=== PATIENT | female | born 1955 | race Caucasian/White ===

== ENCOUNTER 2016-07-24 22:41 | Inpatient (IN) ==
[2016-07-24 23:36] LABS: MANUAL DIFF NEEDED? NO
[2016-07-24 23:50] LABS: INR 1.02; PROTIME 10.7 Seconds (9.2-11.7); PTT 29.4 Seconds (22.0-36.0)
[2016-07-24 23:58] LABS: AGAP 15; ALBUMIN 4.3 g/dL (3.5-5.0); ALKALINE PHOSPHATASE 101 U/L (32-104); BUN 13 mg/dL (8-22); CALCIUM 9.1 mg/dL (8.8-10.2); CHLORIDE 98 mmol/L (98-107); COSMO 285; GOT 27 U/L (10-30); GPT 25 U/L (10-36); MAGNESIUM 1.7 mg/dL (1.5-2.7); POTASSIUM 3.3 mmol/L (3.5-5.1); SODIUM 142 mmol/L (136-145); TCO2 29 mmol/L (25-35); TOTAL BILIRUBIN 0.27 mg/dL (0.20-1.00); TOTAL PROTEIN 7.5 g/dL (6.3-8.3)
[2016-07-25 00:02] LABS: CK PROFILE 267 U/L (24-173)
[2016-07-25] MEDS ORDERED: NITROGLYCERIN TOP ONE (00:09)
[2016-07-25] MEDS ORDERED: ASPIRIN PO ONE ×2 (00:10→01:28)
[2016-07-25 00:15] LABS: BASO% 0.4 % (0.0-0.8); EOS# 0.24 X1000 (0.0-0.7); EOS% 2.2 % (0.0-10.0); HEMATOCRIT 34.9 % (37.0-47.0); HEMOGLOBIN 11.3 g/dL (12.0-16.0); IMM GRAN# 0.02 X1000 (0.0-0.04); IMM GRAN% 0.2 % (0.0-0.5); LYMPH# 2.02 X1000 (1.2-3.4); LYMPH% 18.9 % (20.5-51.1); MCHC 32.4 g/dL (33-37); MCV 89.7 FL (81-99); MONO# 0.97 X1000 (0.11-0.59); MONO% 9.1 % (1.7-9.3); MPV 9.9 FL (7.4-10.4); NEUT% 69.2 % (42.2-75.2); PLT 289 X1000 (130-400); RBC 3.89 XMIL (4.2-5.4)
[2016-07-25 00:52] LABS: CK INDEX 2.2 (0.0-2.5); CK-MB 5.86 ng/mL (0.0-5.0)
[2016-07-25] MEDS ORDERED: ASPIRIN ONE (01:55)
[2016-07-25] MEDS ORDERED: TYLENOL PO PRN (03:26)
[2016-07-25] MEDS ORDERED: KLOR-CON PO ONE (03:53)
[2016-07-25] MEDS ORDERED: NORCO-7.5 ONE (04:33)
[2016-07-25] MEDS ORDERED: SYNTHROID ONE ×3 (04:33→07:09)
[2016-07-25] MEDS: NORCO-7.5 PO PRN ×2 (04:46→21:43)
[2016-07-25] MEDS ORDERED: KLOR-CON ONE (04:54)
[2016-07-25] MEDS: SYNTHROID PO SCH ×2 (04:55→08:36)
--- NOTE | 2016-07-25 05:11 | HISTORY AND PHYSICAL ---
TIME: 0200 PRIMARY CARE PHYSICIAN: NILESH Romero. CHIEF COMPLAINT: Chest pain and rash. HISTORY OF PRESENT ILLNESS: Ms. Bright is a 60-year-old, female who presented to the ER tonight with complaints of substernal, nonradiating chest pain which she describes as pressure in nature. She reports that it started just prior to her arrival to the ER. She denies any associated symptoms with her chest pressure. The patient also complains of a rash to her bilateral lower extremities which she stated started tonight as well. The patient denied any recent changes to her medications or any new prescriptions. She denies any dizziness, lightheadedness, shortness of breath, nausea, vomiting, or diarrhea. She denies any hematochezia or melena. She denies any dysuria or urinary frequency. She also denies any numbness, tingling, or pain in extremities. The patient states that the rash just started tonight and that she has not previously had any rash similar to this. She denies any itching or discomfort from her rash but does state that she feels a little hot. Upon evaluation in the ER, the patient's CK was slightly elevated at 267 with an index of 2.2 and a CK-MB of 5.86. Her troponin was less than 0.01. EKG showed a sinus rhythm with a first-degree AV block with a prolonged QT and a rate of 90 with a QTc of 511. At this time, the patient will be admitted for further evaluation of her chest pain and as well as her rash. The patient just underwent an EGD and colonoscopy on Tuesday. She did report that they did remove some polyps. Secondary to this, they have held her Coumadin until this coming Tuesday. REVIEW OF SYSTEMS: A 12 point review of systems was conducted with the patient. All were negative except for pertinent positives mentioned above in the HPI. PAST MEDICAL HISTORY: 1. Atrial fibrillation, currently on Coumadin therapy. 2. Hypertension. 3. Hyperlipidemia. 4. Hypothyroidism. 5. Sleep apnea. 6. Chronic back pain. PAST SURGICAL HISTORY: 1. Right foot surgery. 2. Bilateral knee replacement. 3. Recent EGD and colonoscopy on Tuesday, July 23. SOCIAL HISTORY: The patient is a former smoker, though quit 45 years ago. She denies any history of alcohol or illicit drug use. FAMILY HISTORY: Her father has a history of coronary artery disease. Her mother has a history of an irregular heartbeat and skin cancer. Her sister has a history of throat cancer and she also has a brother who has a history of throat cancer as well. ALLERGIES: The patient reports allergies to morphine and Levaquin. HOME MEDICATIONS: Ambien 5 mg p.o. at bedtime, Coumadin 6 mg p.o. daily, Zanaflex 4 mg p.o. b.i.d., pravastatin 20 mg p.o. daily, potassium chloride 10 mEq p.o. daily, Protonix 40 mg p.o. daily, Synthroid 100 mcg p.o. daily, Santo 7.5 mg p.o. b.i.d., gabapentin 300 mg p.o. at bedtime, Lasix 40 mg p.o. daily, Tambocor 100 mg p.o. b.i.d., diltiazem XR 240 mg p.o. daily, vitamin D3 1000 units p.o. daily, cetirizine 10 mg p.o. daily, and Biotin 1000 mg p.o. daily. DIAGNOSTIC DATA: Laboratory results: White blood cell count 10.6, hemoglobin 11.3, hematocrit 34.9, platelet count is 289,000. PT 10.7, INR 1.02, PTT 29.4. D-dimer 0.44. Sodium 142, potassium 3.3, chloride 98, bicarb 29, BUN 13, creatinine 0.9, glucose 126, calcium 9.1, magnesium 1.7. Liver function tests are within normal limits. CK 267, CK index 2.2, CK- MB 5.86, with troponin less than 0.01. ProBNP was 150. EKG showed sinus rhythm with a first-degree AV block with a prolonged QT at a rate of 90 with a QTc of 511. Pending diagnostic studies at this time are a chest x-ray, repeat cardiac enzymes, amylase, and lipase. PHYSICAL EXAMINATION: VITAL SIGNS: Temperature 97.6 degrees, heart rate 78, respirations 18, blood pressure 108/64, oxygen saturations 97% on room air. GENERAL: Ms. Bright is a pleasant, 60-year-old, female who is resting on the ER stretcher. She was in no acute distress. She was awake, alert, and able to answer all questions appropriately. HEENT: Head is atraumatic, normocephalic. Pupils are equal, round, reactive to light, 3 mL bilaterally and brisk. Oral mucosa is moist. Oropharynx clear. NECK: Supple. Trachea midline. No JVD noted. No carotid bruits noted upon auscultation bilaterally. CARDIOVASCULAR: The patient has normal S1, S2. No murmurs, gallops, rubs appreciated, with a regular rate and rhythm. PULMONARY: Patient has symmetrical chest expansion bilaterally. Lung sounds are clear to auscultation in bilateral full aldana. ABDOMEN: Soft, nondistended. The patient does have a protuberant abdomen noted. No tenderness noted, though the patient did report some just generalized soreness. Bowel sounds were present in all 4 quadrants and normoactive. EXTREMITIES: The patient does appear to have some very slight swelling noted to bilateral lower extremities. This is nonpitting at this time. No cyanosis or clubbing noted. Pulse, motor, and sensory are intact in all extremities at this time. Pedal pulses as well as radial pulses are 2+ bilaterally. INTEGUMENTARY: Patient's skin is pink, warm, dry, and intact. The patient does have an erythematous, macular, nonblanching rash noted to bilateral lower extremities from approximately mid calf down. It is confluent in pattern. NEUROLOGICAL: Patient is alert and oriented x4. Cranial nerves 2-12 are grossly intact. ASSESSMENT AND PLAN: 1. Chest pain. At this time, the patient is still experiencing some chest pressure. She states it is a approximately 3/10 where previously, upon arrival in the emergency room, it was a 5/10. We will do a series of cardiac enzymes. We will repeat her chest x- ray in the morning. She has been given a 325 mg aspirin. She did recently have a heart catheterization, in October of 2014, which showed no findings of coronary artery disease. She also had a normal left ventricular systolic function. Her last echocardiogram was performed in January of 2016 which showed good left ventricular diastolic function. No valvular abnormalities, no diastolic dysfunction, with normal pulmonary pressures, with an ejection fraction 59%. We have placed a consult with Dr. Rodriguez with cardiology. We will await his evaluation and further recommendations. 2. Atrial fibrillation. We will continue the patient's Tambocor, though we will hold her diltiazem at this time given that this could possibly be causing the patient' s reported rash. We will place her on metoprolol 50 mg by mouth twice a day instead. We will continue to hold the patient's Coumadin due to her recent colonoscopy with polyp removal. We will continue to follow. 3. Hypertension. We will continue her antihypertensive. 4. Hyperlipidemia. We will continue the patient's pravastatin. 5. Hypothyroidism. We will continue the patient's Synthroid. 6. Mild hypokalemia. Patient's potassium was 3.3. We will give her a one time dose of potassium chloride 40 mg and we will continue to monitor. 7. Rash. As previously mentioned, the patient does have an erythematous, macular, nonblanching rash noted to her bilateral lower extremities. She denied any recent medication changes or any new medications. The patient does take Cardizem which could be the cause of her rash. We have held this at this time and placed her on metoprolol instead. We will continue to follow. The patient will be placed on the medical floor with telemetry. She will have vital signs every 4 hours. We will do strict intake and output. Deep venous thrombosis prophylaxis was provided with sequential compression devices. She will be on a heart healthy diet. I would like to add that the patient also did report that she has a recent diagnosis of cholelithiasis and was supposed to see Dr. Scott on Tuesday for further evaluation of this. The patient did report some substernal chest pain. We have added on an amylase and lipase as well and are awaiting a portable chest x- ray to be performed also. Further orders and recommendations pending hospital course, diagnostic studies, and physician evaluation. Dictated by NILESH Larry for Isabella Cabral MD Seen and examined pt . Discussed plan of care with [employer]OD SERVICE HELPER. cc: Isabella Cabral MD [facility]ENTERChris
[2016-07-25 06:32] LABS: AMYLASE 22 U/L (20-200); LIPASE 27 U/L (13-60)
[2016-07-25] MEDS ORDERED: ZYRTEC ONE (07:08)
[2016-07-25] MEDS ORDERED: PRAVACHOL ONE (07:08)
[2016-07-25] MEDS ORDERED: TAMBOCOR ONE (07:08)
[2016-07-25] MEDS ORDERED: LASIX ONE (07:08)
[2016-07-25] MEDS ORDERED: LOPRESSOR ONE (07:08)
[2016-07-25] MEDS ORDERED: VITAMIN D ONE (07:09)
--- NOTE | 2016-07-25 07:33 | Diag Imaging Result Doc PS360 ---
EXAM: CHEST-PORTABLE HISTORY: Chest Pain TECHNIQUE: AP portable at 0500 COMMENT: Considering differences in technique and inspiration there is been no significant change since 02/02/2016. There is fibrosis in the right middle lobe. IMPRESSION: Stable chest Electronically signed by Logan Mcgee 07/25/2016 7:31 AM
[2016-07-25 08:15] LABS: AGAP 13; BUN 16 mg/dL (8-22); CALCIUM 8.7 mg/dL (8.8-10.2); CHLORIDE 101 mmol/L (98-107); CK PROFILE 175 U/L (24-173); COSMO 285; MAGNESIUM 1.8 mg/dL (1.5-2.7); POTASSIUM 3.9 mmol/L (3.5-5.1); SODIUM 143 mmol/L (136-145); TCO2 29 mmol/L (25-35)
[2016-07-25 08:51] LABS: CK INDEX 2.5 (0.0-2.5)
[2016-07-25] MEDS: LOPRESSOR PO SCH ×2 (08:54→21:43)
[2016-07-25] MEDS: ZYRTEC PO SCH (08:55)
[2016-07-25] MEDS: PRAVACHOL PO SCH (08:56)
[2016-07-25] MEDS: VITAMIN D PO SCH (08:59)
[2016-07-25] MEDS: TAMBOCOR PO SCH ×2 (08:59→21:43)
[2016-07-25] MEDS: LASIX PO SCH (08:59)
[2016-07-25] MEDS: PROTONIX PO SCH (09:03)
[2016-07-25] MEDS: PATIENT'S OWN MED PO SCH (09:04)
--- NOTE | 2016-07-25 15:08 | CONSULTATION ---
DATE OF CONSULTATION: 07/25/2016 INDICATION FOR THE CONSULTATION: Chest pain. HISTORY OF PRESENT ILLNESS: Ms. Bright is a 60-year-old white female who normally follows with Dr. Rodriguez. She has a history of paroxysmal atrial fibrillation maintained on warfarin as well as flecainide. She presented for evaluation of chest pain that was pressure in nature and midsternal. It began yesterday evening when she was in a non exertional state. It persisted for several hours. She was experiencing it in the ER and actually has lessened somewhat but has continued to be present even this morning. There is no reproducible component to this discomfort. She has no other associated symptoms. She did note that she ate a fajita salad an hour or two before experiencing the onset of pain. No nausea, vomiting, diarrhea. She has had a recent diagnosis of cholelithiasis and was due to see Dr. Kris Scott for further evaluation. PAST MEDICAL HISTORY: 1. Significant for paroxysmal atrial fibrillation with a presentation in January 2016. Since that time she has been in sinus rhythm maintained on flecainide, Cardizem as well as warfarin. 2. History of chest pain with normal cardiac catheterization in October 2015. She had a normal ejection fraction on that study as well. 3. History of hypertension. 4. Hyperlipidemia. 5. Previous tobacco use. 6. Hypothyroidism. 7. Osteoarthritis. 8. Sleep apnea. SOCIAL HISTORY: Significant for former smoking, quit now for more than 45 years. No alcohol or illicit drug use. FAMILY HISTORY: Significant for coronary disease in her father. Mother has a history of some sort of irregular heartbeat with skin cancer. Sister with a history of throat cancer as well as a brother with throat cancer. REVIEW OF SYSTEMS: A 10-system review of systems is negative except for those mentioned in HPI. PHYSICAL EXAMINATION: Vital Signs: She is afebrile. Heart rate is 66, blood pressure 102/46. General: No acute distress. HEENT: Oropharynx is moist. Poor dentition. Eye examination with pink conjunctivae. White sclerae. Neck: Examination shows no obvious thyromegaly or thyroid tenderness. Cardiovascular: She sounds to be in a regular rate and rhythm. She has no obvious murmurs. She has no lower extremity edema. She has no evidence of elevated JVP and no carotid bruits either. Chest: Her chest exam sounds relatively clear. She has no increased work of breathing. Abdomen: Soft. There is mild tenderness to palpation predominantly in the right upper quadrant. She does slightly wince with deep palpation in that area. No rebound no guarding. No obvious organomegaly. Skin: Warm and dry throughout. She does have a mild erythematous rash noted to her right anterior green. Neurological: She is moving all extremities well. Cranial nerves II through XII are intact without any sensation deficits. Psychiatric: Alert, oriented, pleasant. Normal mood and affect. PERTINENT DATA: She had an EKG on 07/24/2016 at 2317 hours showing sinus rhythm, rate of 90 beats per minute. First-degree AV block is present. No signs of acute ischemia. Subsequent EKG 07/25/2016 at 5:51 a.m. shows sinus rhythm, rate of 70 beats per minute. First-degree AV block is present. No signs of acute ischemic changes or evidence for infarct. She had a chest x-ray performed demonstrating no evidence of significant pulmonary edema, possible fibrosis in the right middle lobe. Her laboratory data shows a white count of 10.7, hematocrit is 34.9, platelet count 289,000. INR is 1.02. D-dimer is normal at 0.44. Sodium this morning is 143, potassium 3.9, her BUN is 16, creatinine 0.7. She has negative cardiac enzymes. CKs are mildly elevated. Her amylase and lipase are normal. ASSESSMENT: Atypical chest pain. PLAN: Patient has a history of cholelithiasis diagnosed by CT earlier this month. Considering her normal cardiac catheterization, normal EKG, and normal enzymes, I would likely not pursue this from a cardiac cause. In addition her pain is somewhat atypical in that it has been persistent for several hours now. I would consider evaluation for cholelithiasis as the etiology of this discomfort. cc: West Mack MD
[2016-07-25] MEDS: NEURONTIN PO SCH (21:43)
--- NOTE | 2016-07-26 05:45 | EKG Report ---
Test Performed on : 07/25/2016 05:51:51 AM Test Reason : Chest Pain Blood Pressure : / mmHG Vent. Rate : 070 BPM Atrial Rate : 070 BPM P-R Int : 208 ms QRS Dur : 102 ms QT Int : 470 ms P-R-T Axes : 067 006 042 degrees QTc Int : 507 ms Normal sinus rhythm. Nonspecific T wave abnormality Abnormal ECG When compared with ECG of 24-JUL-2016 23:17, No significant change was found Confirmed by Sergio Jaeger MD ([id number]) on 07/26/2016 10:55:49 AM
[2016-07-26 05:57] LABS: MANUAL DIFF NEEDED? NO
[2016-07-26] MEDS: PROTONIX PO SCH (06:16)
[2016-07-26] MEDS: SYNTHROID PO SCH ×2 (06:16→10:31)
--- NOTE | 2016-07-26 06:17 | EKG Report ---
Test Performed on : 07/24/2016 11:17:08 PM Test Reason : Chest Pain Blood Pressure : / mmHG Vent. Rate : 090 BPM Atrial Rate : 090 BPM P-R Int : 212 ms QRS Dur : 106 ms QT Int : 418 ms P-R-T Axes : 068 -01 066 degrees QTc Int : 511 ms Sinus rhythm. with 1st degree AV block. Prolonged QT Abnormal ECG When compared with ECG of 03-FEB-2016 11:32, HI interval has increased Questionable change in QRS duration Unconfirmed Result
[2016-07-26 06:30] LABS: BASO% 0.2 % (0.0-0.8); EOS# 0.24 X1000 (0.0-0.7); EOS% 4.4 % (0.0-10.0); HEMATOCRIT 30.7 % (37.0-47.0); HEMOGLOBIN 9.6 g/dL (12.0-16.0); LYMPH# 1.66 X1000 (1.2-3.4); LYMPH% 30.5 % (20.5-51.1); MCH 28.6 PG (27-31); MCHC 31.3 g/dL (33-37); MCV 91.4 FL (81-99); MONO# 0.59 X1000 (0.11-0.59); MONO% 10.8 % (1.7-9.3); MPV 10.2 FL (7.4-10.4); NEUT% 54.1 % (42.2-75.2); PLT 228 X1000 (130-400); RBC 3.36 XMIL (4.2-5.4)
[2016-07-26 06:33] LABS: AGAP 11; BUN 14 mg/dL (8-22); CALCIUM 8.6 mg/dL (8.8-10.2); CHLORIDE 103 mmol/L (98-107); COSMO 284; POTASSIUM 3.9 mmol/L (3.5-5.1); SODIUM 143 mmol/L (136-145); TCO2 29 mmol/L (25-35)
[2016-07-26] MEDS: LOPRESSOR PO SCH ×2 (10:27→21:54)
[2016-07-26] MEDS: VITAMIN D PO SCH (10:28)
[2016-07-26] MEDS: TAMBOCOR PO SCH ×2 (10:29→21:54)
[2016-07-26] MEDS: ZYRTEC PO SCH (10:29)
[2016-07-26] MEDS: LASIX PO SCH (10:29)
[2016-07-26] MEDS: PRAVACHOL PO SCH (10:29)
[2016-07-26] MEDS: PATIENT'S OWN MED PO SCH (10:30)
[2016-07-26] MEDS ORDERED: MIRALAX PO ONE (11:09)
--- NOTE | 2016-07-26 11:36 | PROGRESS NOTE ---
DATE: 07/26/2016 SUBJECTIVE: This patient is feeling much better, she has no complaint of chest pain at this moment, no shortness of breath, mild abdominal discomfort mostly at the level of the right upper quadrant. OBJECTIVE: Vital Signs: Temperature 98.5 degrees, pulse 56, respiratory rate 20, blood pressure 116/63, oxygen saturation 95% on room air. HEENT: Head normocephalic. No trauma. PERRLA. Neck: Supple. No JVD. No masses. Central trachea. Chest: Clear to auscultation. No wheezing. No rales. Abdomen: Soft, mild tenderness to palpation at the level of the right upper quadrant. No signs of peritoneal irritation. Cardiovascular: RRR. No murmurs. Extremities: No edema. No clubbing. No cyanosis. This patient has a rash that looks like a band in 2 specific areas in both lower extremities. It looks like contact dermatitis because of its distribution. LABORATORY: WBC 5.4, hemoglobin 9.6, hematocrit 30.7, platelets 228,000. Sodium 143, potassium 3.9, chloride 103, bicarbonate 29, BUN 14, creatinine 0.8, glucose 76, calcium 8.6. ASSESSMENT AND PLAN: 1. Chest pain. This is much better, she has no complaint of chest pain or shortness of breath at this moment. She was evaluated by the cardiology department and since her EKG and troponins and previous status were negative he is not considering that this patient needs further workup. 2. Atrial fibrillation. Continue with the same management for now. This patient has been on warfarin but it has been stopped because of her recent colonoscopy and upper endoscopy. We will restart the warfarin tomorrow. 3. Hypertension. Continue with her medications. 4. Hyperlipidemia. Continue with patient's pravastatin. 5. Hypothyroidism. Continue with Synthroid. 6. Mild hypokalemia, resolved. 7. Rash, for me it looks like contact dermatitis but I am not quite sure, we will continue with the same management for now. It is not getting worse. 8. This patient had an appointment today with surgery for possible cholelithiasis. I will consult them so she can be evaluated and after that if they are not going to do any procedures this patient can be discharged home either today or tomorrow. cc: Corey Gagnon MD
--- NOTE | 2016-07-26 16:54 | CONSULTATION ---
DATE OF CONSULTATION: 07/26/2016 HISTORY OF PRESENT ILLNESS: This is a 60-year-old female who has had some right upper quadrant pain that radiates to her back. It began radiating to her chest last night prompting emergency room visit. She has been worked up for abdominal pain by Dr. Josue and found to have gallstones actually supposed to see me in my office today for evaluation of the symptomatic stones but she went to ER yesterday. She has had extensive cardiac workup that has been overall negative. Troponins been normal, EKG without any acute changes and she has had a left heart catheterization just a couple years ago that was overall normal per Dr. Mack. She been stable. Her pain is improved this morning. After the work workup of her heart is felt the pain is more likely gallbladder in etiology. Patient denies any nausea, vomiting. She has chronic constipation but a recent colonoscopy just last week by Dr. Josue that showed some polyps. PAST MEDICAL HISTORY: 1. Atrial fibrillation for which she takes Coumadin. 2. Obesity. 3. Hypertension. 4. Hyperlipidemia. 5. Hypothyroidism. 6. Sleep apnea. 7. Chronic back pain. SURGICAL HISTORY: She has had right foot surgery for bunion, bilateral knee replacement, EGD and colonoscopy july 23 and she has had a tubal ligation. SOCIAL HISTORY: History of smoking, quit 45 years ago. Denies any alcohol or drugs. FAMILY HISTORY: She has got multiple family members with cancer, lung and oropharyngeal cancer in both brothers and sister. REVIEW OF SYSTEMS: Ten point negative other what is mentioned in HPI. She denies any jaundice, fevers. PHYSICAL EXAMINATION: Vital Signs: Temperature 98.5, pulse 56, blood pressure , oxygen saturation 99% on room air. General: She is alert, no acute distress. HEENT: No scleral icterus or cervical masses. Cardiovascular: Normal rate, regular rhythm. Pulmonary: No increased work of breathing. Abdomen: Soft, nontender, nondistended. She is obese. Integument: Warm, dry without any jaundice. Extremity: Lower extremity exam there is trace lower extremity edema. The feet are well perfused. There is ecchymotic circumferential rash symmetrically in bilateral ankles but I do not see any cellulitis here. Strength appears normal throughout. Neurologic: There is no gross neurologic deficits. DATA: White count 5, hematocrit 30, platelets are 228. Creatinine 0.8, glucose is 76. LFTs on admission were bilirubin 0.27, AST, ALT 27,25, alkaline phosphatase 101. Troponins are negative x2, amylase, lipase 22, 27. CT scan from July 07 shows constipation with calcified gallstones but no acute inflammation, some fatty infiltration liver as well. ASSESSMENT AND PLAN: A 60-year-old female with symptomatic cholelithiasis. She has undergone a cardiac workup that has been normal thus far. Dr. Mack is following. She is off the Coumadin for EGD, colonoscopy recently. We have had long discussion risks, benefits, alternatives. I think this is a good time for us remove her gallbladder given her symptoms that have resulted in multiple visits to the emergency department and now on admission and she is off her Coumadin which she takes for atrial fibrillation. We discussed risk of bleeding, infection, bile leak and bile duct injury and the possibility of conversion to open, she understands and consents. She does have a large stool volume burden on her most recent CT scan. I will start clear liquids now, give her a couple doses of MiraLAX in anticipation of surgery tomorrow, will make her NPO at midnight and plan for laparoscopic cholecystectomy with cholangiogram tomorrow pending her completion of her cardiac workup today. cc: Caroline Scott MD [facility]
[2016-07-26] MEDS: MIRALAX PO SCH (21:54)
[2016-07-26] MEDS: NEURONTIN PO SCH (21:54)
[2016-07-27 05:30] LABS: MANUAL DIFF NEEDED? NO
[2016-07-27 05:34] LABS: BASO% 0.4 % (0.0-0.8); EOS# 0.27 X1000 (0.0-0.7); EOS% 3.7 % (0.0-10.0); HEMATOCRIT 32.3 % (37.0-47.0); HEMOGLOBIN 10.3 g/dL (12.0-16.0); LYMPH# 1.62 X1000 (1.2-3.4); LYMPH% 22.2 % (20.5-51.1); MCHC 31.9 g/dL (33-37); MONO# 0.69 X1000 (0.11-0.59); MONO% 9.5 % (1.7-9.3); MPV 9.8 FL (7.4-10.4); NEUT% 64.2 % (42.2-75.2); PLT 239 X1000 (130-400); RBC 3.55 XMIL (4.2-5.4)
[2016-07-27 05:47] LABS: AGAP 11; BUN 12 mg/dL (8-22); CALCIUM 8.6 mg/dL (8.8-10.2); CHLORIDE 103 mmol/L (98-107); COSMO 284; POTASSIUM 3.8 mmol/L (3.5-5.1); SODIUM 143 mmol/L (136-145); TCO2 29 mmol/L (25-35)
[2016-07-27] MEDS: PROTONIX PO SCH (06:45)
[2016-07-27] MEDS: MIRALAX PO SCH ×2 (09:10→21:46)
[2016-07-27] MEDS: LOPRESSOR PO SCH ×3 (09:10→21:47)
[2016-07-27] MEDS: PATIENT'S OWN MED PO SCH (09:10)
[2016-07-27] MEDS ORDERED: SODIUM CHLORIDE 0.9% ONE (10:46)
[2016-07-27] MEDS ORDERED: MARCAINE 0.25% PF/EPI 1:200,000 ONE (10:46)
[2016-07-27] MEDS ORDERED: LR 1,000 ML ONE ×2 (10:47→12:51)
[2016-07-27] MEDS ORDERED: XYLOCAINE 1% ONE (10:47)
[2016-07-27] MEDS ORDERED: KEFZOL 2 GM/D5W 2 GM/50 ML IVPB ONE (10:55)
--- NOTE | 2016-07-27 11:45 | PROGRESS NOTE ---
DATE: 07/27/2016 SUBJECTIVE: No events overnight. No more chest pain or abdominal pain. No nausea or vomiting. OBJECTIVE: Vital Signs: No fevers. No tachycardia. Blood pressure has been 139/71. Abdomen: Soft, nontender, nondistended. Integument: Warm and dry, with no jaundice. HEENT: No scleral icterus. LABORATORIES: White count 7, hematocrit 32. Creatinine 0.7. Troponins have been negative x2. ASSESSMENT: A 60-year-old female with symptomatic cholelithiasis. Cardiac workup has been unrevealing. Given that she is off of her Coumadin, we will plan for cholecystectomy today for symptomatic cholelithiasis. We discussed risks, benefits, and alternatives, including bleeding, infection, damage to other structures, bile leak, possibility of leaving a drain, and common bile duct injury. She understands that these are risks, but are unlikely, and will proceed to operating room today for laparoscopic cholecystectomy with cholangiogram. cc: Caroline Scott MD
--- NOTE | 2016-07-27 12:13 | Diag Imaging Result Doc PS360 ---
EXAM: OPERATIVE CHOLANGIOGRAM HISTORY: GALLBLADDER DZ TECHNIQUE: Intraoperative cholangiogram, two views taken during the procedure performed by Dr. Scott. COMPARISON: None. FINDINGS: Contrast fills the distal common bile duct and has emptied into the duodenum. No stone or stricture. IMPRESSION: Negative cholangiogram. Electronically signed by Nima Servin 07/27/2016 12:11 PM
[2016-07-27] MEDS ORDERED: DIPRIVAN 1% ONE (12:20)
[2016-07-27] MEDS ORDERED: FENTANYL ONE (12:20)
[2016-07-27] MEDS ORDERED: ROBINUL ONE (12:50)
[2016-07-27] MEDS ORDERED: NEOSTIGMINE ONE (12:50)
[2016-07-27] MEDS ORDERED: ZOFRAN ONE (12:50)
[2016-07-27] MEDS ORDERED: ZEMURON ONE (12:51)
[2016-07-27] MEDS ORDERED: QUELICIN (DOSE) ONE (12:51)
[2016-07-27] MEDS ORDERED: XYLOCAINE-MPF 2% ONE (12:51)
--- NOTE | 2016-07-27 13:11 | PROGRESS NOTE ---
DATE: 07/27/2016 SUBJECTIVE: Patient is still reporting mild abdominal discomfort in the right upper quadrant. OBJECTIVE: Vital Signs: Temperature 97.2 degrees, heart rate 55, respiratory rate 12, blood pressure 117/60 and O2 saturation 100% on room air. General Examination: This is a 60-year-old female, lying in bed in no acute distress. HEENT: Head is normocephalic, atraumatic. Anicteric sclerae and pale conjunctivae. Mucous membranes moist. Neck: Supple. No JVD noted. No carotid bruits. No lymphadenopathy. No thyromegaly. Cardiovascular exam: S1, S2 heard. No murmurs, gallops, or rubs. Regular rate and rhythm. Respiratory: Clear bilaterally to auscultation. No work of breathing or using accessory muscles. Abdomen: Soft, mildly tender to palpation in the right lower quadrant. No signs of peritoneal irritation. Cardiovascular exam: S1, S2 heard. Extremities: No clubbing, cyanosis, or edema. He had a rash that looks like a belt in both lower extremities; it appears to be a contact dermatitis. Neurological exam: Patient alert and oriented x3. Able to move 4 extremities. Cranial nerves 2-12 grossly normal. LABORATORY DATA: White cell count 7.29, hemoglobin 10.3, hematocrit 32.3, platelets 239 with BMP normal. ASSESSMENT AND PLAN: 1. Chest pain. That condition is resolved. Cardiology has evaluated this patient and they are not going to do any further workup. 2. Atrial fibrillation. The patient was on warfarin for this condition and, because of recent colonoscopy and upper endoscopy, was stopped. We are going to restart it as soon as this patient has surgery. 3. Symptomatic cholelithiasis Dr. Kris Scott has evaluated this patient, and she is going to be taken to the operating room today. We will follow his recommendations. 4. Hypertension. We will continue home medications. 5. Hyperlipidemia. The patient will continue with pravastatin. 6. Hypothyroidism. Patient will continue with home dose of Synthroid. 7. Lower extremity rash. Will continue with the same management. cc: Gorge Sims MD
[2016-07-27] MEDS: PRAVACHOL PO SCH (14:07)
[2016-07-27] MEDS: ZYRTEC PO SCH (14:08)
[2016-07-27] MEDS: TAMBOCOR PO SCH ×2 (14:08→21:44)
[2016-07-27] MEDS: LASIX PO SCH (14:08)
[2016-07-27] MEDS: VITAMIN D PO SCH (14:08)
--- NOTE | 2016-07-27 14:09 | OPERATIVE NOTE ---
PROCEDURE DATE: 07/27/2016 PREOPERATIVE DIAGNOSIS: Symptomatic cholelithiasis. POSTOPERATIVE DIAGNOSIS: Symptomatic cholelithiasis. PROCEDURE PERFORMED: Laparoscopic cholecystectomy with intraoperative cholangiogram. ESTIMATED BLOOD LOSS: 5 mL. SPECIMENS: Gallbladder. ANESTHESIA: General. OFFSET MACHINE OPERATOR: Dr. Caesar Venegas, who was present for the entirety of the case. OPERATIVE INDICATIONS: A 60-year-old female who presented with chest pain and right upper quadrant abdominal pain. Cardiac workup was negative. CT scan showed gallstones within the gallbladder consistent with symptomatic cholelithiasis. OPERATIVE FINDINGS: There was a chronically inflamed gallbladder that contained numerous stones. On cholangiogram, there was a short cystic duct with rapid flow of contrast into a prominent common bile duct, but which was not pathologically dilated, with no filling defects and preferential flow in the duodenum. We could get some reflux in the common hepatic duct, but could not get reflux in the bilateral 2nd- and 3rd-degree biliary radicals. The pancreatic duct was not visualized. Overall, normal-appearing cholangiogram. OPERATIVE NOTE: Risks, benefits, and alternatives were discussed with the patient. She consented to the procedure. She was seen in the preoperative area. Surgery to be performed was confirmed and she was taken to the operating room, placed in supine position, and general anesthesia was induced. Abdomen was prepped with chlorhexidine and draped in usual fashion. After a time-out, a periumbilical block was made. A curvilinear supraumbilical incision was made and carried down to the level of the fascia. The umbilical stalk was elevated. An incision the midline fascia was made with a 15 blade scalpel and the abdomen entered in a controlled fashion. A 12 mm David trocar was placed under direct visualization into the abdomen, with care to protect the underlying structures. After this, the abdomen was insufflated to 15 mmHg. We inspected to make sure that there was no underlying injury and there was not. We then placed 3 trocars, 1 to the epigastrium, 1 in the midclavicular line off the costal margin, and 1 more laterally after infiltration of the peritoneum. This was all done under direct visualization. Using a locking grasper, we grasped the gallbladder and retracted it cephalad. Starting laterally and progressing medially over the infundibulocystic junction, we stripped down the peritoneum, exposing the critical view of safety. There was an enlarged lymph node here overlying the artery. We dissected this out, doubly clipped the artery and divided it. After establishing the critical view, we dissected out the cystic duct. We could visualize the common bile duct along its entire course and we were well away from this. We protected the common bile duct, placed a clip on the gallbladder side, made a ductotomy, and performed the cholangiogram with above findings. After this, we triply clipped the cystic duct and divided it. We removed the gallbladder from the gallbladder fossa with care to protect from rupturing the gallbladder, and we did this successfully. We placed the gallbladder in an EndoCatch bag. We irrigated the abdomen and confirmed hemostasis in the gallbladder fossa, and that the cystic duct was well occluded with the clips. There was no bile leakage. After irrigating the abdomen, we removed the trocars under direct visualization. We desufflated the abdomen and brought the gallbladder out through the umbilical incision. We closed the fascia with interrupted 0 Vicryl sutures. Skin was closed with 4-0 Monocryl. Dermabond was applied. Counts correct x2. She tolerated the procedure well and was transferred to PACU in good condition. cc: Caroline Scott MD
[2016-07-27] MEDS: NORCO-7.5 PO PRN (16:21)
[2016-07-27] MEDS ORDERED: SYNTHROID PO SCH (21:00)
[2016-07-27] MEDS: NEURONTIN PO SCH (21:44)
[2016-07-27] MEDS: PERIDEX MT SCH (21:46)
[2016-07-28] MEDS: PROTONIX PO SCH (07:31)
[2016-07-28] MEDS: PERIDEX MT SCH (08:15)
[2016-07-28] MEDS: PRAVACHOL PO SCH (08:15)
[2016-07-28] MEDS: VITAMIN D PO SCH (08:15)
[2016-07-28] MEDS: TAMBOCOR PO SCH (08:15)
[2016-07-28] MEDS: ZYRTEC PO SCH (08:16)
[2016-07-28] MEDS: LASIX PO SCH (08:16)
[2016-07-28] MEDS: LOPRESSOR PO SCH (08:18)
[2016-07-28] MEDS: PATIENT'S OWN MED PO SCH (08:18)
[2016-07-28] MEDS: MIRALAX PO SCH (08:18)
--- NOTE | 2016-07-28 08:39 | PROGRESS NOTE ---
DATE: 07/28/2016 SUBJECTIVE: Feels well. only pain is at incisions. No other events overnight. She is tolerating clear liquids. OBJECTIVE: Afebrile. Temperature is 98 degrees, pulse 52, blood pressure 126/ 60. Abdomen is soft, appropriately tender. Incision clean, dry, and intact. LABORATORY DATA: No new labs this morning. ASSESSMENT AND PLAN: This is a 60-year-old female admitted with chest pain and found to have gallstones felt to be causing the symptoms. She is doing very well. From a surgical standpoint, she can go home. She is to see me back in the next 1-2 weeks in my office. I have given her detailed postoperative instructions, what to look out for, fevers, jaundice, nausea, vomiting, worsening abdominal pain. She will call if she develops any of these. cc: Caroline Scott MD MTDD
[2016-07-28 11:05] VITALS: BP 117/63
--- NOTE | 2016-07-28 14:42 | DISCHARGE SUMMARY ---
ADMISSION DATE: 07/25/2016 DISCHARGE DATE: 07/28/2016 CONSULTATIONS: 1. Dr. West Mack with cardiology. 2. Dr. Kris Scott with general surgery. PERTINENT PROCEDURES: Laparoscopic cholecystectomy with intraoperative cholangiogram. DISCHARGE DIAGNOSES: 1. Symptomatic cholelithiasis status post laparoscopic cholecystectomy with intraoperative cholangiogram performed by Dr. Kris Scott. The patient tolerated the procedure well. Tolerating p.o. She is being discharged home today. 2. Atrial fibrillation. The patient on flecainide and Cardizem as well as warfarin. Her Cardizem was discontinued secondary to low heart rates in the 50s. Will continue on flecainide and resume warfarin. She will report on 07/30/2016 to [facility] where she normally has her Coumadin checked. I have left a message with the [facility] to be on the lookout for a PT and an INR for adjustments. 3. Chest pain. Condition resolved. Cardiology evaluated the patient. She does not require any further work up. [place] it was secondary to her symptomatic cholelithiasis. 4. Hypertension. Continue home medications. 5. Hyperlipidemia. Continue on pravastatin. 6. Hypothyroidism. Continue on Synthroid. HOSPITAL COURSE: Ms. Bright is a 60-year-old female, who presented to the ED with complaints of substernal nonradiating chest pain that was described as pressure. It started just prior to arrival to the ED. She did complain of a rash to her bilateral lower extremities which started on the day of her admission as well. She denies any recent changes to medications or new prescriptions. There was no associated dizziness, lightheadedness, shortness of breath, nausea or vomiting. Upon evaluation in the ED, the patient's CK was slightly elevated at 267 with index of 2.2 and a CK-MB of 5.86, troponin was less than 0.01. EKG showed sinus rhythm with 1st degree AV block and a prolonged QT at a rate of 90 with a QTc of 511. The patient was admitted for further evaluation of chest pain. She was ruled out with serial enzymes. She was also initiated on aspirin. She did recently have a heart catheterization in October 2014 which showed no findings of coronary artery disease and normal LV function. She also reported diagnosis of cholelithiasis and was supposed to see Dr. Scott on Tuesday for evaluation however with the chest pain she went ahead and came in and was ruled out for MO. She did undergo a laparoscopic cholecystectomy with intraoperative cholangiogram with Dr. Kris Scott for her symptomatic cholelithiasis. She has been released from a surgical standpoint. Dr. Brown feels that the patient is appropriate for discharge. He is going to continue to hold her Cardizem until she follows up with Dr. Rodriguez secondary to low heart rates in the 50s. As well as resume her Coumadin. I have left a message with the [facility]. The patient will be coming to [facility] to have her labs drawn on 07/30/2016. Dr. Brown did not want to do any type of Lovenox bridge. The patient was not therapeutic when she came into the hospital. She will follow up with Dr. Kris Scott in 1-2 weeks in his office. He has given her detailed postoperative instructions - what to look out for, such as fevers, jaundice, nausea, vomiting and worsening abdominal pain, and to call him if he develops any of these symptoms. Vital signs at time of her discharge, temperature is 98 degrees, heart rate 57, respirations 16, blood pressure is 117/63, O2 is 96% on room air. DISCHARGE DIET: GI soft. DISCHARGE MEDICATIONS: 1. As per Dr. Brown, Biotin 1000 mcg p.o. daily. 2. Zyrtec 10 mg p.o. daily. 3. Vitamin D 3000 units p.o. daily. 4. Tambocor 100 mg p.o. b.i.d. 5. Lasix 40 mg p.o. daily. 6. Gabapentin 300 mg p.o. at bedtime. 7. [place] 1 tab p.o. b.i.d. 8. Synthroid 0.1 mg p.o. daily. 9. Protonix 40 mg p.o. daily. 10. Klor-Con 10 mEq p.o. daily. 11. Pravastatin 20 mg p.o. daily. 12. Zanaflex 4 mg p.o. b.i.d. 13. Coumadin 6 mg p.o. daily. 14. Ambien 10 mg 1 each p.o. at bedtime. FOLLOWUP: The patient is being discharged home with self care. She is to follow up with her PT/INR on 07/30/2016. I have left a message with the [facility] to be awaiting her results for her Coumadin adjustment. The patient can follow up with Dr. Rodriguez in reference to her Cardizem being stopped due to low heart rate as well as her follow up her primary care physician NILESH Romero, and her surgeon Dr. Kris Scott in 1-2 weeks. The patient can return to the ED for any worsening of symptoms. DISCHARGE TIME: Thirty four minutes. Dictated by NILESH Bustillos for Gorge Sims MD cc: NILESH Romero MD Cesar Garcia-Rodriguez, MD [facility]
--- NOTE | 2016-09-30 18:17 | PROVIDER DOCUMENTATION ---
This chart was entered by Kostas Breaux Scribe, acting as scribe for Harvey Jo MD. HPI-Chest Pain - General Chief Complaint: Chest Pain Stated Complaint: CP, RASH BILATERAL LEGS Time Seen by Provider: 07/24/16 23:27 Source: patient Allergies/Adverse Reactions: Patient Allergies Allergy/AdvReac Type Severity Reaction Status Date / Time morphine Allergy Mild RASH Verified 07/25/16 00:35 levofloxacin [From Levaquin] Allergy ANAPHYLAXIS Verified 07/25/16 00:35 Home Medications: Home Medication List Medication Instructions Recorded Confirmed Last Taken Type Cetirizine HCl 10 mg PO DAILY 06/07/14 07/25/16 07/24/16 History Furosemide [Lasix] 40 mg PO DAILY 06/07/14 07/25/16 07/24/16 History Levothyroxine [Synthroid] 0.1 mg PO DAILY 06/07/14 07/25/16 07/24/16 History Potassium Chloride [Klor-Con 10] 10 meq PO DAILY 06/07/14 07/25/16 07/24/16 History Pravastatin Sodium 20 mg PO DAILY 06/07/14 07/25/16 07/24/16 History Pantoprazole [Protonix] 40 mg PO DAILY@0700 #30 tablet 10/11/14 07/25/16 Rx Zolpidem [Ambien] 1 dose PO HS 10/11/14 07/25/16 07/23/16 History Biotin 1,000 mcg PO DAILY 02/03/16 07/25/16 07/24/16 History Gabapentin 300 mg PO HS 02/03/16 07/25/16 07/23/16 History Tizanidine [Zanaflex] 4 mg PO BID 02/03/16 07/25/16 07/24/16 History Cholecalciferol (Vitamin D3) 1,000 units PO DAILY 07/25/16 07/25/16 07/24/16 History [Vitamin D3] Flecainide [Tambocor] 100 mg PO BID 07/25/16 07/25/16 07/24/16 History Hydrocodone/Acetaminophen [Cedar 1 tab PO BID 07/25/16 07/25/16 07/24/16 History 7.5-325 Tablet] Warfarin Sodium 6 mg PO DAILY 05/07/25/16 07/19/16 History - History of Present Illness-CP Nature of Presenting Problem: Pt is a 60 yowf who presents to ER with CC of central, non-radiating chest pain that started earlier tonight. Pt states that her chest pain is worse on deep inspiration and is reproducible on exam. Pt also reports a rash on bilateral lower extremities. Location: reports: central Chest Pain Radiation: reports: no radiation Quality of Pain: reports: aching Severity in ED: mild Onset/Duration: this evening Timing: still present Associated Symptoms: reports: abdominal pain, rash, shortness of breath. denies : back pain, diaphoresis, dizziness, edema, fatigue, fever/chills, headache, heartburn, nausea Nitro Today/Relief: no nitro taken today Aspirin Treatment Today: no aspirin today Similar Symptoms Previously?: No Recently Seen Here or By Another Healthcare Provider: Yes Review of Systems - Adult - REVIEW OF SYSTEMS - ADULT Constitutional: denies: chills, fever, fatique, night sweats, weight gain, weight loss Eyes: reports: no symptoms reported Ears, Nose, Mouth & Throat: reports: no symptoms reported Cardiovascular: reports: chest pain. denies: edema, heart murmur, irregular heart rate, orthopnea, palpitations, poor circulation, PND, syncope Respiratory: reports: dyspnea on exertion. denies: chronic cough, cough, excessive sputum production, hemoptysis, pleurisy, shortness of breath, wheezing Gastrointestinal: reports: constipation. denies: diarrhea, nausea, vomiting Genitourinary: reports: no symptoms reported Musculoskeletal: reports: no symptoms reported Integumentary: reports: rash. denies: hives, hair loss, itching, mole changes, nail changes, skin sores/ulcer, skin thickening Neurological: reports: no symptoms reported Psychiatric: reports: no symptoms reported Endocrine: reports: no symptoms reported Hematologic/Lymphatic: reports: no symptoms reported Allergic/Immunologic: reports: no symptoms reported All Other Systems: Reviewed and Negative Past History - Adult - PAST MEDICAL HISTORY-ADULT Review of Records: reports: Nursing Assessment Review, Medications Reviewed Cardiovascular: reports: A-Fib, HTN, hyperlipidemia Musculoskeletal: reports: arthritis Endocrine/Immune: reports: thyroid disorder - PRIOR SURGERIES/PROCEDURES Surgical/Procedure History: reports: recent surgery (reconstructive foot surgery with bunionectomy) - IMMUNIZATION STATUS Childhood Immunizations: See Nurse Assessment Flu Vaccine: See Nurse Assessment - FAMILY HISTORY Family History: reviewed, not pertinent Physical Exam-General - PHYSICAL EXAM-ADULT Initial Vital Signs Reviewed: Yes - CONSTITUTIONAL General Appearance: appears well, alert, mild distress, obese, anxious - EYES Eyes: PERRL/EOMI, pink conjunctivae - HEAD, EARS, NOSE, MOUTH & THROAT HENMT: normocephalic/atraumatic, moist mucous membranes, normal ENT inspection, TMs normal, pharynx normal. negative: angioedema, dental decay, hearing deficit , pharyngeal erythema, tonsillar exudate, TM abnormal - NECK Neck: non-tender, full range of motion, supple, normal inspection. negative: C- spine tenderness, limited range of motion, lymphadenopathy - RESPIRATORY Respiratory: lungs clear, normal breath sounds, no pleuratic chest pain, no respiratory distress, no accessory muscle use. negative: chest non-tender, respiratory distress, decreased breath sounds, accessory muscle use, wheezing - CARDIOVASCULAR Cardiovascular: normal peripheral pulses, regular rate, rhythm. negative: bradycardia, tachycardia, irregularly irregular - CHEST (BREASTS) Chest/Breast: tenderness (central chest pain (same as CC) reproducible with palpation) - GASTROINTESTINAL (ABDOMEN) Abdominal Exam: normal bowel sounds, non tender, soft, no organomegaly, no pulsatile mass. negative: abnormal bowel sounds, distended, tenderness - MUSCULOSKELETAL Back Exam: normal inspection, no CVA tenderness, no vertebral tenderness. negative: CVA tenderness, vertebral tenderness Extremity: normal range of motion, non-tender, normal gait, normal inspection, no pedal edema, no calf tenderness, normal capillary refill, swelling (mild bilateral ankle swelling). negative: deformity, erythema, inflammation, tenderness - SKIN Integumentary: erythema, petechiae, rash (erythemous, macular, petechiael rash on bilateral ankles). negative: abrasion(s), diaphoresis, ecchymosis, laceration(s) - NEUROLOGIC Neurologic: numerical tool programmer II-XII nml as tested, grossly normal, no motor/sensory deficits . negative: facial droop, focal weakness, motor weakness, sensory deficit - PSYCHIATRIC Psych/Mental Status: normal mood/affect, normal thought content, normal thought process, oriented x 3 Progress - PLAN OF CARE/RESULTS Progress/Plan/Lab Results: Orders Category Date Time Status Admit - [facility] [place] Routine [id number] 07/25/16 03:26 Ordered Apply Mechanical Device [QM] ORDERED Care 07/25/16 03:26 Active Nursing- MD Consult Request ROUTINE Care 07/25/16 03:26 Completed Saline Loc DIRECTED Care 07/25/16 03:26 Active Vital Signs Order Q 4-HR ASSESS Care 07/25/16 03:26 Active Physician/Provider Consults Routine Cons 07/25/16 08:00 Ordered Heart Healthy Diet Diet 07/25/16 02:19 Completed BASIC METABOLIC PANEL [CHEM] Routine Lab 07/25/16 07:32 Completed BASIC METABOLIC PANEL [CHEM] Routine Lab 07/26/16 05:25 Completed CBC WITH ELECTRONIC DIFF [HEME] Routine Lab 07/26/16 05:25 Completed CBC WITH ELECTRONIC DIFF [HEME] Stat Lab 07/24/16 23:23 Completed CK PROFILE [SP CHEM] Q8H Lab 07/25/16 07:32 Completed CK PROFILE [SP CHEM] Q8H Lab 07/25/16 14:47 Completed CK PROFILE [SP CHEM] Stat Lab 07/24/16 23:23 Completed COMPREHENSIVE METABOLIC PANEL [CHEM] Stat Lab 07/24/16 23:23 Completed D-DIMER [CHEM] Stat Lab 07/24/16 23:23 Completed MAGNESIUM [CHEM] Routine Lab 07/25/16 07:32 Completed MAGNESIUM [CHEM] Routine Lab 07/25/16 07:32 Completed MAGNESIUM [CHEM] Stat Lab 07/24/16 23:23 Completed PRO B-NATRIURETIC PEPTIDE Stat Lab 07/24/16 23:23 Completed PROTIME WITH INR [COAG] Stat Lab 07/24/16 23:23 Completed PTT [COAG] Stat Lab 07/24/16 23:23 Completed TROPONIN T Q8H Lab 07/25/16 07:32 Completed TROPONIN T Q8H Lab 07/25/16 14:47 Completed TROPONIN T Stat Lab 07/24/16 23:23 Completed Acetaminophen [Tylenol] Med 07/25/16 03:26 Discontinued 650 mg PO Q6H PRN PRN Aspirin Med 07/25/16 00:10 Discontinued 324 mg PO NOW ONE Aspirin Med 07/25/16 01:28 Discontinued 324 mg PO NOW ONE Aspirin Med 07/25/16 01:55 Discontinued 325 mg .ROUTE .STK-MED ONE Cetirizine [Zyrtec] Med 07/25/16 09:00 Discontinued 10 mg PO DAILY Cholecalciferol (Vit D3) [Vitamin D] Med 07/25/16 09:00 Discontinued 1,000 unit PO DAILY Flecainide [Tambocor] Med 07/25/16 09:00 Discontinued 100 mg PO BID Furosemide [Lasix] Med 07/25/16 09:00 Discontinued 40 mg PO DAILY Gabapentin [Neurontin] Med 07/25/16 21:00 Discontinued 300 mg PO HS Hydrocodone/APAP 7.5 mg/325 mg [[place]edar-7.5] Med 07/25/16 03:26 Discontinued 1 each PO BID PRN PRN Levothyroxine [Synthroid] Med 07/25/16 09:00 Discontinued 100 microgm PO DAILY Nitroglycerin Med 07/25/16 00:09 Discontinued 0.5 inch TOP NOW ONE PRAVAstatin [Pravachol] Med 07/25/16 09:00 Discontinued 20 mg PO DAILY Pantoprazole [Protonix] Med 07/25/16 07:00 Discontinued 40 mg PO DAILY@0700 Patient's Own Med Med 07/25/16 09:00 Discontinued 1 each PO DAILY Oxygen Device Routine Oth 07/25/16 03:26 Completed EKG [EKG] Routine Ther 07/25/16 08:00 Completed EKG [EKG] Stat Ther 07/24/16 23:11 Draft Transfer/Admit Order [TRANSFER] Routine Transfer 07/25/16 02:17 Completed Result Diagrams: 07/27/16 05:08 07/27/16 05:08 - EKG 1 Time of EKG reading by physician:: 23:17 EKG Read and Signed by:: Harvey Jo EKG Interpretation (*Must complete 3 of following elements*): Abnormal ( Prolonged QT) Rate: 90 Rhythm: Sinus rhythm with 1st degree AV block - CONSULTS/PCP/HOSPITALIST Notification #1 *Consult/PCP/Hospitalist*: Dr. Cabral (Hospitalist) Time Discussed: 01:32 Consult Disposition: Admit Departure - Departure Date of Disposition Decision: 07/24/16 Time of Disposition Decision: 01:29 DIAGNOSIS: Chest pain Qualifiers: Chest pain type: unspecified Qualified Code(s): R07.9 - Chest pain, unspecified Disposition: ADMITTED INPATIENT 09 Certified Medical Emergency: Emergent Condition: Stable - Critical Care Note This patient required my direct & personal management of CC.: No This chart was documented by the indicated scribe, (Kostas Breaux, Anum) and accurately reflects the services I performed and decisions made by me, Harvey Jo MD, as attested by the provider's signature.
== END 2016-07-28 14:28 | disposition home or self-care (01) ==
LOC: ED 22:41 → 4N 07-25 02:56 → SUATTDRO 07-25 02:56
PROVIDERS: ATTEND Internal Medicine

== ENCOUNTER 2018-11-28 13:03 | Inpatient (IN) ==
--- NOTE | 2018-11-28 13:40 | EKG Report ---
Test Performed on : 11/28/2018 1:29:36 PM Test Reason : cp Blood Pressure : / mmHG Vent. Rate : 071 BPM Atrial Rate : 071 BPM P-R Int : 172 ms QRS Dur : 100 ms QT Int : 474 ms P-R-T Axes : 072 -14 037 degrees QTc Int : 515 ms Normal sinus rhythm. Normal ECG When compared with ECG of 09-OCT-2017 16:08, No significant change was found Unconfirmed Result
[2018-11-28 13:45] LABS: BASO# 0.05 X1000 (0.0-0.2); BASO% 0.5 % (0.0-0.8); EOS# 0.21 X1000 (0.0-0.7); EOS% 2.2 % (0.0-10.0); HEMATOCRIT 36.7 % (37.0-47.0); HEMOGLOBIN 11.8 g/dL (12.0-16.0); IMM GRAN# 0.02 X1000 (0.0-0.04); IMM GRAN% 0.2 % (0.0-0.5); LYMPH# 2.58 X1000 (1.2-3.4); LYMPH% 27.6 % (20.5-51.1); MCHC 32.2 g/dL (33-37); MCV 90.2 FL (81-99); MONO# 0.94 X1000 (0.11-0.59); MPV 9.9 FL (7.4-10.4); NEUT# 5.56 X1000 (1.4-6.5); NEUT% 59.5 % (42.2-75.2); PLT 268 X1000 (130-400); RBC 4.07 XMIL (4.2-5.4); RDW 14.1 % (11.5-14.5); WBC 9.36 X1000 (4.8-10.8)
--- NOTE | 2018-11-28 13:50 | Diag Imaging Result Doc PS360 ---
EXAM: CHEST-2 VIEWS 11/28/2018 HISTORY: cp TECHNIQUE: PA and lateral chest COMMENT: There is platelike opacity in the right middle lobe which was also apparently present on 10/09/2017. Otherwise the appearance the chest has not changed significantly. 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 No evidence of acute disease. Electronically signed by Logan Mcgee 11/28/2018 1:48 PM
[2018-11-28 13:51] LABS: INR 1.51; PROTIME 18.5 Seconds (11.0-16.0)
[2018-11-28 13:52] LABS: PTT 34.8 Seconds (22.3-41.8)
[2018-11-28 14:23] LABS: AGAP 18; ALB/GLOB RATIO 1.4; ALBUMIN 4.7 g/dL (3.5-5.0); ALKALINE PHOSPHATASE 94 U/L (32-104); BUN 19 mg/dL (8-22); CALCIUM 9.6 mg/dL (8.8-10.2); CHLORIDE 99 mmol/L (98-107); CK PROFILE 77 U/L (24-173); COSMO 285; CREATININE 0.9 mg/dL (0.5-0.9); ESTIMATED GFR > 60; GLUCOSE 87 mg/dL (70-104); GOT 27 U/L (10-30); GPT 30 U/L (10-36); POTASSIUM 4.3 mmol/L (3.5-5.1); SODIUM 142 mmol/L (136-145); TCO2 25 mmol/L (25-35); TOTAL BILIRUBIN 0.26 mg/dL (0.20-1.00)
[2018-11-28] MEDS ORDERED: G.I. COCKTAIL PO ONE (17:17)
--- NOTE | 2018-11-28 17:37 | PROVIDER DOCUMENTATION ---
HPI-Cardiac General - General Chief Complaint: General Adult Stated Complaint: INFECTION RECHECK Time Seen by Provider: 11/28/18 14:14 Source: patient Allergies/Adverse Reactions: Patient Allergies Allergy/AdvReac Type Severity Reaction Status Date / Time morphine Allergy Mild RASH Verified 11/22/18 12:17 levofloxacin [From Levaquin] Allergy ANAPHYLAXIS Verified 11/22/18 12:17 Home Medications: Home Medication List Medication Instructions Recorded Confirmed Last Taken Type Cetirizine HCl 10 mg PO DAILY 06/07/14 11/28/18 11/27/18 History Furosemide [Lasix] 40 mg PO BID 06/07/14 11/28/18 11/28/18 History Levothyroxine [Synthroid] 112 mcg PO DAILY 06/07/14 11/28/18 11/27/18 History Potassium Chloride [Klor-Con 10] 10 meq PO DAILY 06/07/14 11/28/18 11/28/18 History Biotin 10,000 mcg PO DAILY 02/03/16 11/28/18 11/28/18 History Gabapentin 400 mg PO HS 02/03/16 11/28/18 11/27/18 History Tizanidine [Zanaflex] 4 mg PO HS 02/03/16 11/28/18 11/27/18 History Flecainide [Tambocor] 100 mg PO BID 07/25/16 11/28/18 11/28/18 History Warfarin Sodium 6 mg PO HS 07/25/16 11/28/18 11/27/18 History Diclofenac Sodium 75 mg PO BID 10/09/17 11/28/18 11/28/18 History Diltiazem HCl [Diltiazem ER] 120 mg PO DAILY 10/09/17 11/28/18 11/28/18 History Ranitidine [Zantac] 150 mg PO BID 10/09/17 11/28/18 11/28/18 History Spironolactone 25 mg PO DAILY 10/09/17 11/28/18 11/28/18 History ATORVAstatin [Lipitor] 40 mg PO QHS 11/22/18 11/28/18 11/27/18 History Cephalexin [Keflex] 500 mg PO Q8HR 10 Days #30 cap 11/22/18 11/28/18 11/28/18 Rx Hydrocodone/Acetaminophen [[place] 1 ea PO TID 11/22/18 11/28/18 11/28/18 History 7.5-325 Tablet] Temazepam 15 mg PO QHS 11/22/18 11/28/18 11/27/18 History Omeprazole 20 mg PO DAILY #30 capsule. 11/28/18 Unknown Rx - History of Present Illness-Cardiac Nature of Presenting Problem: Patient reports headache x 1 week duration and now substernal/epigastric pain x 2 days duration. KRUEGER stated 1 week same time she was evaluated for right leg cellulitis and still on antibiotics. she has been take norco 10/325mg and diclofenac for her arthritis but still persistent KRUEGER. She felt nauseous with norco today, she did not take her zofran, her prn nausea pill. 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 No extremity weakness. chest/epigastc pain radiates to the interscapular area. No sob , vomiting. 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) Associated Symptoms: reports: headache (but started before chest pain) Similar Symptoms Previously?: Yes Recently Seen Here or By Another Healthcare Provider: Yes Review of Systems - Adult - REVIEW OF SYSTEMS - ADULT Constitutional: reports: no symptoms reported Eyes: reports: no symptoms reported Ears, Nose, Mouth & Throat: reports: no symptoms reported Cardiovascular: reports: no symptoms reported Respiratory: reports: no symptoms reported Gastrointestinal: reports: see HPI Genitourinary: reports: no symptoms reported Musculoskeletal: reports: no symptoms reported Integumentary: reports: no symptoms reported Neurological: reports: see HPI Psychiatric: reports: no symptoms reported Endocrine: reports: no symptoms reported Allergic/Immunologic: reports: no symptoms reported All Other Systems: Reviewed and Negative Past History - Adult - PAST MEDICAL HISTORY-ADULT Review of Records: reports: Old Records Reviewed Major Childhood Illnesses: reports: denies history Cardiovascular: reports: A-Fib, HTN, hyperlipidemia Respiratory: reports: denies history Gastrointestinal: reports: GERD Obstetrical/Gynecological: reports: denies history Genitourinary: reports: denies history Musculoskeletal: reports: arthritis Neurological: reports: denies history Psychiatric: reports: denies history Endocrine/Immune: reports: thyroid disorder Other Conditions: reports: denies history - PRIOR SURGERIES/PROCEDURES Surgical/Procedure History: reports: recent surgery (reconstructive foot surgery with bunionectomy), cholecystectomy, joint replacement - IMMUNIZATION STATUS Childhood Immunizations: See Nurse Assessment Flu Vaccine: See Nurse Assessment - FAMILY HISTORY Family History: reviewed, not pertinent - SOCIAL HISTORY Smoking: denies Substance Use: denies Alcohol Use Frequency: never Physical Exam-General - CONSTITUTIONAL General Appearance: appears well (due to KRUEGER), alert, mild distress - EYES Eyes: PERRL/EOMI - HEAD, EARS, NOSE, MOUTH & THROAT HENMT: normocephalic/atraumatic - NECK Neck: non-tender, supple - RESPIRATORY Respiratory: chest non-tender, lungs clear - CARDIOVASCULAR Cardiovascular: no edema, no murmur - GASTROINTESTINAL (ABDOMEN) Abdominal Exam: soft, tenderness (around the xyhoid/epigastrum) - MUSCULOSKELETAL Back Exam: normal inspection Extremity: normal range of motion - SKIN Integumentary: normal color - PSYCHIATRIC Psych/Mental Status: oriented x 3 - HEART Score HEART Score: History: Slightly Suspicious HEART Score: ECG: Normal HEART Score: Age: 45-65 Years HEART Score: Risk Factors for Atherosclerotic Disease: > or = 3 Risk Factors or History of Atherosclerotic Disease HEART Score: Troponin: < or = Normal Limit Total HEART Score:: 3 Progress - PLAN OF CARE/RESULTS Progress/Plan/Lab Results: Laboratory Results - last 24 hr 11/28/18 11/28/18 11/28/18 13:31 13:31 13:31 WBC 9.36 RBC 4.07 L Hgb 11.8 L Hct 36.7 L MCV 90.2 MCH 29.0 MCHC 32.2 L RDW Std Deviation 14.1 Plt Count 268 MPV 9.9 Immature Gran % (Auto) 0.2 Neut % (Auto) 59.5 Lymph % (Auto) 27.6 [place] % (Auto) 10.0 H Eos % (Auto) 2.2 Baso % (Auto) 0.5 Immature Gran # (Auto) 0.02 Neut # (Auto) 5.56 Lymph # (Auto) 2.58 [place] # (Auto) 0.94 H Eos # (Auto) 0.21 Baso # (Auto) 0.05 PT INR PTT (Actin FS) Sodium 142 Potassium 4.3 Chloride 99 Carbon Dioxide 25 Anion Gap 18 BUN 19 Creatinine 0.9 Estimated GFR/1.73 m2 > 60 BUN/Creatinine Ratio 21 Glucose 87 Calculated Osmolality 285 Calcium 9.6 Total Bilirubin 0.26 AST 27 ALT 30 Alkaline Phosphatase 94 Creatine Kinase 77 Troponin T Tmo-H-Xfuqcubsbyl Pept 106 Total Protein 8.0 Albumin 4.7 Globulin 3.3 Albumin/Globulin Ratio 1.4 Lipase Urine Source Urine Color Urine Turbidity Urine pH Ur Specific [place] Urine Protein Ur Glucose (Stick) Ur Ketones (Stick) Urine Blood Urine Nitrite Urine Bilirubin Urobilinogen Dipstick Urine Leukocytes Urine WBC (Auto) Urine RBC (Auto) U Epithel Cells (Auto) Urine Bacteria (Auto) 11/28/18 11/28/18 11/28/18 13:31 13:31 13:31 WBC RBC Hgb Hct MCV MCH MCHC RDW Std Deviation Plt Count MPV Immature Gran % (Auto) Neut % (Auto) Lymph % (Auto) [place] % (Auto) Eos % (Auto) Baso % (Auto) Immature Gran # (Auto) Neut # (Auto) Lymph # (Auto) [place] # (Auto) Eos # (Auto) Baso # (Auto) PT 18.5 H INR 1.51 PTT (Actin FS) 34.8 Sodium Potassium Chloride Carbon Dioxide Anion Gap BUN Creatinine Estimated GFR/1.73 m2 BUN/Creatinine Ratio Glucose Calculated Osmolality Calcium Total Bilirubin AST ALT Alkaline Phosphatase Creatine Kinase Troponin T < 0.010 Sbk-[id number]-Yijfwkofojb Pept Total Protein Albumin Globulin Albumin/Globulin Ratio Lipase 23 Urine Source Urine Color Urine Turbidity Urine pH Ur Specific [place] Urine Protein Ur Glucose (Stick) Ur Ketones (Stick) Urine Blood Urine Nitrite Urine Bilirubin Urobilinogen Dipstick Urine Leukocytes Urine WBC (Auto) Urine RBC (Auto) U Epithel Cells (Auto) Urine Bacteria (Auto) 11/28/18 11/28/18 18:20 20:42 WBC RBC Hgb Hct MCV MCH MCHC RDW Std Deviation Plt Count MPV Immature Gran % (Auto) Neut % (Auto) Lymph % (Auto) [place] % (Auto) Eos % (Auto) Baso % (Auto) Immature Gran # (Auto) Neut # (Auto) Lymph # (Auto) [place] # (Auto) Eos # (Auto) Baso # (Auto) PT INR PTT (Actin FS) Sodium Potassium Chloride Carbon Dioxide Anion Gap BUN Creatinine Estimated GFR/1.73 m2 BUN/Creatinine Ratio Glucose Calculated Osmolality Calcium Total Bilirubin AST ALT Alkaline Phosphatase Creatine Kinase Troponin T < 0.010 Kef-K-Zjhcacnqmeh Pept Total Protein Albumin Globulin Albumin/Globulin Ratio Lipase Urine Source CLEAN CATCH Urine Color YELLOW Urine Turbidity CLEAR Urine pH 6.0 Ur Specific [place] 1.018 Urine Protein TRACE A Ur Glucose (Stick) NEGATIVE Ur Ketones (Stick) NEGATIVE Urine Blood SMALL A Urine Nitrite NEGATIVE Urine Bilirubin NEGATIVE Urobilinogen Dipstick NORMAL Urine Leukocytes TRACE A Urine WBC (Auto) <10 Urine RBC (Auto) <10 U Epithel Cells (Auto) <10 Urine Bacteria (Auto) NEGATIVE Orders Category Date Time Status Cardiac Monitoring DIRECTED Care 11/28/18 13:33 Active Oxygen Therapy- ED Nursing DIRECTED Care 11/28/18 13:33 Active Saline Loc NOW Care 11/28/18 13:33 Active CHEST-2 VIEWS [RAD] Stat Exams 11/28/18 13:[address] HEAD/C-SPINE W/O CONTRAST [CT] Stat Exams 11/28/18 17:42 Completed CBC WITH ELECTRONIC DIFF [HEME] Stat Lab 11/28/18 13:31 Completed CK PROFILE [SP CHEM] Stat Lab 11/28/18 13:31 Completed COMPREHENSIVE METABOLIC PANEL [CHEM] Stat Lab 11/28/18 13:31 Completed LIPASE [CHEM] Stat Lab 11/28/18 13:31 Completed PRO B-NATRIURETIC PEPTIDE Stat Lab 11/28/18 13:31 Completed PROTIME WITH INR [COAG] Stat Lab 11/28/18 13:31 Completed PTT [COAG] Stat Lab 11/28/18 13:31 Completed TROPONIN T Stat Lab 11/28/18 13:31 Completed TROPONIN T Stat Lab 11/28/18 20:42 Completed URINALYSIS W/POSS RFLX CULT [URINALYSIS] Stat Lab 11/28/18 18:20 Completed URINE CULTURE [RM] Routine Lab 11/28/18 19:05 Received Diphenhydramine [Benadryl] Med 11/28/18 19:09 Discontinued 25 mg IM NOW ONE Lido/Espinosa Alk/Al&mg Hydrox [G.i. Cocktail] Med 11/28/18 17:17 Discontinued 30 ml PO NOW ONE Nitroglycerin Med 11/28/18 22:14 Discontinued 0.5 inch TOP NOW ONE Prochlorperazine [Compazine] Med 11/28/18 19:09 Discontinued 10 mg PO NOW ONE CP/SOB/Palp >45 yrs of Age Stat Oth 11/28/18 13:33 Ordered EKG [EKG] Stat Ther 11/28/18 13:33 Draft Transfer/Admit Order [TRANSFER] Routine Transfer 11/28/18 22:24 Ordered Result Diagrams: 11/28/18 13:31 11/28/18 13:31 - REASSESSMENT Reassessment #1 Time Reassessed: 18:53 Status: improving (epigastric pain is improving with Gi cocktail, still having KRUEGER. Discussed neg head CT,) Reassessment #2 Time Reassessed: 19:07 Status: improving (epigastric pain continue to improve but still KRUEGER. She has li sted morphine as allergy, will do compazine and benadryl.) Reassessment #3 Time Reassessed: 20:25 Status: improving (headache is improving some with compazine and benadryl. Still epigastric pain but improving. Will go ahead and order a 2nd troponin.) Reassessment #4 Status: improving (Patient headache and chest pain have improved, however chest pain is still present. Given risk factors and persistant pain. Discussed situation with the patient and it was decided that she would be admitted for chest pain rule out.) - EKG 1 Time of EKG reading by physician:: 13:39 EKG Interpretation (*Must complete 3 of following elements*): Normal Rate: 71 QRS: normal HI Interval: normal ST Wave: normal - CHANGE OF SHIFT REPORT (ED Provider) 1 Report Given and Care Transferred to:: I discussed case and signed out to dr Bruno at [facility] end of my shift Departure - Departure Date of Disposition Decision: 11/29/18 Time of Disposition Decision: 22:50 DIAGNOSIS: Chest pain Qualifiers: Chest pain type: unspecified Qualified Code(s): R07.9 - Chest pain, unspecified Disposition: ADMITTED INPATIENT 09 Certified Medical Emergency: Emergent Condition: Fair - Critical Care Note This patient required my direct & personal management of CC.: No Attestation - Physician/ GEORGE Attestation Patient care was provided by Advanced Practice Provider:: No The physician spent face to face time with patient:: Yes Advanced Practice Provider documentation review:: Supervising physician onsite and consulted in the evaluation and care of this patient. The physician did have a face to face encounter with the patient.
--- NOTE | 2018-11-28 18:13 | Diag Imaging Result Doc PS360 ---
EXAM: CT HEAD/C-SPINE W/O CONTRAST 11/28/2018 HISTORY: intractible headache TECHNIQUE: This exam was performed using automated exposure control, adjustment of mA or kV according to patient size, and/or use of iterative reconstruction technique. COMMENT: The current study is compared with the previous examination of 11/03/2018. There is an ossified meningioma anteriorly on the right. This measures 2.4 cm in diameter. There has been no significant change in this regard since the previous study. Otherwise there is no evidence of mass effect, bleed, or abnormal extra-axial fluid collection. The visualized paranasal sinuses are clear. The calvarium is intact. Cervical spine: There is disc space narrowing and posterior osteophyte formation at C3-4, C4-5, C5-6, and C6-7. The facets are aligned. There is no evidence of fracture, subluxation, or prevertebral soft tissue swelling. Compared to 11/03/2018 there has been no significant change in the appearance of the cervical spine. IMPRESSION: Stable right frontal meningioma. No evidence of acute disease. Electronically signed by Logan Mcgee 11/28/2018 6:10 PM
[2018-11-28 18:41] LABS: URINE SOURCE CLEAN CATCH
[2018-11-28 18:54] LABS: BILIRUBIN URINE NEGATIVE (NEGATIVE); BLOOD URINE SMALL (NEGATIVE); COLOR YELLOW; GLUCOSE URINE NEGATIVE (NEGATIVE); KETONE URINE NEGATIVE (NEGATIVE); LEUKOCYTES URINE TRACE (NEGATIVE); NITRITE URINE NEGATIVE (NEGATIVE); PROTEIN URINE TRACE mg/dL (NEGATIVE); SP GRAVITY URINE 1.018; TURBIDITY URINE CLEAR (CLEAR); UROBILINOGEN URINE NORMAL (NORMAL)
[2018-11-28 18:55] LABS: UR EPITHELIAL CELLS <10 /HPF (<10); URINE BACTERIA NEGATIVE /HPF; URINE RBC <10 /HPF (<10); URINE WBC <10 /HPF (<10)
[2018-11-28] MEDS ORDERED: COMPAZINE PO ONE (19:09)
[2018-11-28] MEDS ORDERED: BENADRYL IM ONE (19:09)
[2018-11-28] MEDS ORDERED: NITROGLYCERIN TOP ONE (22:14)
--- NOTE | 2018-11-28 23:42 | HISTORY AND PHYSICAL ---
PRIMARY CARE PHYSICIAN: Soraya Darling MD. CHIEF COMPLAINT: Chest pain. HISTORY OF PRESENTING ILLNESS: This is a 63-year-old female with a history of hypertension, hypothyroidism, atrial fibrillation and hyperlipidemia who had presented to the emergency department with several days history of having chest pain. She states that she had mild shortness of breath. She was evaluated in the emergency department due to her presenting symptoms, it was thought that we will place her for observation for further evaluation and management. At the time my examination the patient denied any headache, fever, chills, nausea, vomiting, diarrhea, hemoptysis, melena or weight changes, but complained of chest pain. PAST MEDICAL HISTORY: Includes hypertension, hypothyroidism, hyperlipidemia, atrial fibrillation, obstructive sleep apnea. PAST SURGICAL HISTORY: Cholecystectomy, right foot surgery, bilateral knee replacement. ALLERGIES: Morphine and levofloxacin. CURRENT MEDICATIONS: Atorvastatin 40 mg p.o. at bedtime, diltiazem 120 mg p.o. daily, Tambocor 100 mg p.o. b.i.d., furosemide 40 mg p.o. b.i.d., gabapentin 400 mg p.o. q.h.s., Martha 7.5 one p.o. t.i.d. levothyroxine 112 mcg p.o. daily, ranitidine 150 mg p.o. b.i.d., spironolactone 25 mg p.o. daily, temazepam 15 mg p.o. at bedtime, warfarin 6 mg p.o. at bedtime. SOCIAL HISTORY: He is a former smoker. Denies any history of alcohol or illicit drug use. FAMILY HISTORY: Positive for coronary disease in father. REVIEW OF SYSTEMS: Fourteen point review of system listed as in the HPI, other systems negative. PHYSICAL EXAMINATION: GENERAL: A cooperative friendly female. She is resting comfortably now. VITAL SIGNS: Temperature is 98.0 degrees, pulse 77, respirations 18, blood pressure 137/87. HEENT: Atraumatic, normocephalic. Extraocular movements are intact. PERRLA. NECK: Supple. CHEST: Clear to auscultation. CARDIOVASCULAR: Regular rate and rhythm. ABDOMEN: Soft. Positive bowel sounds. EXTREMITIES: No edema. NEUROLOGIC: She is awake, alert and oriented x3. : No bladder distention. SKIN: Warm. LABORATORIES AND STUDIES: WBC is 9.36, hemoglobin is 11.8, hematocrit is 36.7, platelets 268,000. Sodium 142 potassium 4.3, chloride 99, CO2 is 25, BUN is 19, creatinine 0.9 glucose is 87, troponin 0.010. ASSESSMENT: This is a 63-year-old female with a history of hypertension, hyperlipidemia and atrial fibrillation who had presented to the emergency department with several days history of having chest pain. The patient was evaluated in the emergency department and due to her presenting symptoms it was thought that we will place her for observation for further evaluation and management. 1. Chest pain atypical. 2. Atrial fibrillation. 3. Hypertension. 4. Hyperlipidemia. PLAN: 1. We will admit the patient to a medical floor with telemetry. 2. Continue with cardiac workup. Check EKG and serial cardiac enzymes. Have the patient continue on aspirin. Use of sublingual nitroglycerin p.r.n. chest pain. 3. We will continue to monitor the patient on telemetry and continue her anticoagulation and monitor pro time and INR. 4. We will monitor blood pressure closely. 5. Restart other home medications. 6. The patient is already on Coumadin and this will suffice for DVT prophylaxis. 7. We will continue to follow, reassess and make further recommendations based on the patient's clinical course. cc: Howard Hunt MD MTDD
[2018-11-29] MEDS ORDERED: ZOFRAN IV PRN (04:26)
[2018-11-29 05:35] LABS: INR 1.66
[2018-11-29 05:55] LABS: CHOLESTEROL 146 mg/dL (0-200); HDL 45 mg/dL (45-65); LDL 80 mg/dL; TRIGLYCERIDES 105 mg/dL (35-135); VLDL 21 mg/dL
[2018-11-29] MEDS: SYNTHROID PO SCH (06:35)
[2018-11-29] MEDS ORDERED: PRILOSEC PO SCH (07:00)
[2018-11-29] MEDS: TAMBOCOR PO SCH ×2 (08:53→21:27)
[2018-11-29] MEDS: CARDIZEM CD PO SCH (08:53)
[2018-11-29] MEDS: ALDACTONE PO SCH (08:53)
[2018-11-29] MEDS: NORCO-7.5 PO SCH ×4 (08:53→21:42)
[2018-11-29] MEDS: ZANTAC PO SCH ×2 (08:53→21:28)
[2018-11-29] MEDS: LASIX PO SCH ×2 (08:54→21:34)
[2018-11-29] MEDS ORDERED: ASPIRIN PO SCH (09:00)
--- NOTE | 2018-11-29 11:09 | CONSULTATION ---
DATE OF CONSULTATION: 11/29/2018 IMPRESSION: 1. Episodic chest discomfort with features predominantly atypical for myocardial ischemia. Serial cardiac enzymes are negative thus far. 2. Paroxysmal atrial fibrillation, managed with flecainide, diltiazem, and anticoagulation with warfarin. The patient continues in sinus rhythm. 3. Hypertension. 4. Obesity. 5. Hypothyroidism. 6. Obstructive sleep apnea. RECOMMENDATIONS: 1. Obtain resting sestamibi study today. 2. Consider Lexiscan sestamibi study tomorrow. HISTORY: This 63-year-old white female with past history of paroxysmal atrial fibrillation, previous negative coronary angiography at least 4 years ago, hypertension, hyperlipidemia, and obesity, was admitted through the emergency room yesterday with chest pain. She actually relates the onset of burning discomfort in the center of the chest that was rather persistent 2 nights ago. She went to the emergency room initially, and did not stay as they seemed to be quite busy. Symptoms seemed to diminish, but never completely went away. She has had persistently recurrent increase in burning discomfort, which prompted her to return to the emergency room yesterday around 1:00 in the afternoon. She had no acute changes on ECG, and initial troponins were negative. She relates that she had what sounds like a GI cocktail, and this did not really seem to help her chest discomfort that much. She was subsequently admitted for further workup. Her chest symptoms have pretty much abated. Since admission, she has been started on omeprazole and ranitidine, as well as Zofran. She relates that the discomfort did not seem to be affected by meals. Discomfort is not exertional. She does have history of gastroesophageal reflux and peptic ulcer disease. There has been no melena or bright red blood per rectum. PAST MEDICAL HISTORY: 1. Paroxysmal atrial fibrillation. 2. Obesity. 3. Hypertension. 4. Hypothyroidism. 5. Hyperlipidemia. 6. Obstructive sleep apnea. 7. Gastroesophageal reflux disease. 8. Peptic ulcer disease. PAST SURGICAL HISTORY: Includes cholecystectomy, unspecified right foot surgery, and bilateral knee replacements. ALLERGIES: She is allergic or intolerant to morphine and levofloxacin. MEDICATIONS PRIOR TO ADMISSION: As listed. SOCIAL HISTORY: She is . She no longer smokes. She does not use alcohol. FAMILY HISTORY: Positive for coronary disease in her father. REVIEW OF SYSTEMS: Pulmonary: Negative. Gastrointestinal: Noncontributory beyond history of present illness. Constitutional: Noncontributory beyond history of present illness. Remainder of the review of systems is negative/noncontributory beyond history of present illness, with 14 total systems reviewed. PHYSICAL EXAMINATION: General: This is an obese, middle-aged, white female in no distress. Vital Signs: Blood pressure 123/56, heart rate 60, oxygen saturation 100% on room air. HEENT: Extraocular movements intact. Mucous membranes moist. Neck: Supple without jugular venous distention. No carotid bruits. Chest: Clear to auscultation. Cardiac: Regular rate and rhythm without appreciable murmur or gallop. Abdomen: Soft, nontender. Bowel sounds are normal. Extremities: Without edema. Neurologic: She is alert and fully oriented. Speech is fluent. She moves all 4 extremities equally well. Skin: Warm and dry. Psychiatric: Her mood is appropriate. DIAGNOSTIC DATA: A 12-lead EKG demonstrates sinus rhythm and is within normal limits. LABORATORY DATA: Includes white blood cell count 9.36, hematocrit 36.7, hemoglobin 11.8, platelet count 268,000. INR 1.51, ProTime 18.5, PTT 34.8. Sodium 142, potassium 4.3, chloride 99, carbon dioxide 25, BUN 19, creatinine 0.9, glucose 87. Initial CPK 77, followup CPK 55. Initial CPK less than 0.01, Followup CPK less than 0.01. Triglycerides 105, total cholesterol 146, LDL cholesterol 88, VLDL cholesterol 21, HDL cholesterol 45. Lipase 23. cc: Malachi Betancourt MD
--- NOTE | 2018-11-29 13:19 | PROGRESS NOTE ---
DATE: 11/29/2018 SUBJECTIVE: This patient is complaining of epigastric discomfort/burning sensation. It is not a pressure-like type pain. She has been evaluated by the cardiology department and will do a stress test today. OBJECTIVE: Vital Signs: Temperature 98.8 degrees, pulse 64, respiratory rate 15, blood pressure 128/69, oxygen saturation 98 on room air. HEENT: Head normocephalic. No trauma. Neck: Supple. No JVD. No masses. Central trachea. Chest: Clear to auscultation. No wheezing. No rales. Abdomen: Soft, nontender, nondistended. Positive bowel sounds. Extremities: No edema, no clubbing, no cyanosis. Neurological Examination: The patient is alert and oriented x3. No focal deficits. Laboratory: PT 20, INR 1.6. Troponins negative x3. ASSESSMENT AND PLAN: 1. Atypical chest pain. Probably, this is more related to gastritis and/or esophagitis. I have increased the dose of the proton pump inhibitors to twice a day and I have recommended for her to go to a veterinarian laboratory animal care as an outpatient. Cardiology department evaluated this patient. They will do a stress test today and I will monitor. Probably, she will do the rest of the stress test tomorrow. 2. History of atrial fibrillation. She is on warfarin. We will continue with the same management for now, is subtherapeutic. 3. History of hypertension. Continue with the same treatment. Blood pressure seems to be stable. 4. Hyperlipidemia. This patient has been placed on atorvastatin 40, which she has been taking at home. 5. Hypothyroidism. Continue with levothyroxine. 6. Obstructive sleep apnea. Aware. cc: Corey Gagnon MD
[2018-11-29] MEDS ORDERED: ROCEPHIN 1 GM in NS 50 ML IV SCH (17:00)
[2018-11-29] MEDS ORDERED: NS 50 ML ONE (18:03)
[2018-11-29] MEDS: COUMADIN PO SCH (21:27)
[2018-11-29] MEDS: PRILOSEC PO SCH (21:27)
[2018-11-29] MEDS: LIPITOR PO SCH (21:28)
[2018-11-29] MEDS: NEURONTIN PO SCH (21:28)
[2018-11-29] MEDS: RESTORIL PO SCH (21:28)
[2018-11-30] MEDS: SYNTHROID PO SCH (06:27)
[2018-11-30] MEDS: PRILOSEC PO SCH ×2 (06:27→20:45)
[2018-11-30 08:01] LABS: INR 1.6; PROTIME 19.4 Seconds (11.0-16.0)
[2018-11-30 08:28] LABS: AGAP 12; BUN 15 mg/dL (8-22); CHLORIDE 98 mmol/L (98-107); COSMO 274; CREATININE 0.9 mg/dL (0.5-0.9); ESTIMATED GFR > 60; GLUCOSE 93 mg/dL (70-104); POTASSIUM 4.1 mmol/L (3.5-5.1); SODIUM 137 mmol/L (136-145); TCO2 27 mmol/L (25-35)
[2018-11-30] MEDS ORDERED: LEXISCAN ONE (08:36)
[2018-11-30] MEDS: NORCO-7.5 PO SCH ×3 (10:32→16:27)
[2018-11-30] MEDS: ALDACTONE PO SCH (10:33)
[2018-11-30] MEDS: LASIX PO SCH ×2 (10:33→16:27)
[2018-11-30] MEDS: ZANTAC PO SCH ×2 (10:33→20:45)
[2018-11-30] MEDS: TAMBOCOR PO SCH ×2 (10:33→20:45)
[2018-11-30] MEDS: CARDIZEM CD PO SCH (10:34)
--- NOTE | 2018-11-30 15:54 | PROGRESS NOTE ---
DATE: 11/30/2018 SUBJECTIVE: This patient is no longer complaining of abdominal pain or chest pain. She is complaining of a headache. She was requesting a CT of the cervical spine but that has been done recently on 11/28/2018 with no evidence of acute disease. Apparently she has been having this kind of headache for a month. Head CT is negative. For her chest pain we did a stress test and the results are pending. If those results are negative I believe this patient can go home. OBJECTIVE: Vital Signs: Temperature 99.3, pulse 103, respiratory rate 15, blood pressure 124/61, and oxygen saturation 98% on room air. HEENT: Head normocephalic. No trauma. Left eye blindness. Neck: Supple. No JVD. Central trachea. Chest: Clear to auscultation. No wheezing or rales. Abdomen: Soft. Some tenderness to palpation at the epigastric area. Extremities: No edema. No clubbing. No cyanosis. Neurological: The patient is alert. She is oriented times 3. No focal deficits. LABORATORY: PT is 19.4 and INR 1.6. Sodium is 137, potassium 4.1, chloride 98, bicarbonate 27, BUN 15, creatinine 0.9, glucose 93, and calcium 9. ASSESSMENT AND PLAN: 1. Atypical chest pain. I believe this is more related to gastritis and/or esophagitis. I placed this patient on PPIs twice a day and I recommended for her to go to a caustic mixer as an outpatient. The Cardiology Department evaluated this patient and they did a stress test today. I will wait for the final recommendations. Probably she can go home today in the afternoon or tomorrow morning. 2. History of atrial fibrillation. Continue with warfarin. She is subtherapeutic at this moment. 3. History of hypertension. Continue with same management. Blood pressure is controlled. 4. Hyperlipidemia. Continue with atorvastatin. 5. Hypothyroidism. Continue with levothyroxine. 6. Headache, apparently she has been with a headache for a month. I recommended for her to go to a neurologist. CT scan of the head and CT spine of the cervical area without any acute abnormality. 7. Obstructive sleep apnea. Aware. 8. Asymptomatic bacteruria. She is not complaining of dysuria or any kind of symptoms or frequency. We will just monitor. cc: Corey Gagnon MD
--- NOTE | 2018-11-30 16:01 | Diag Imaging Result Document ---
PROCEDURE NAME: MYOCARDIAL PERF SCAN, STR/REST - 11/29/2018 PROCEDURE: Lexiscan sestamibi interpretation. SUMMARY: The patient was studied using a two-day protocol. The patient underwent resting sestamibi study on 11/29/2018. The patient was administered 37.3 mCi of technetium-99m sestamibi, after which gated rest cardiac images were obtained. The patient returned for Lexiscan sestamibi study on 11/30/2018. The patient was administered Lexiscan 0.4 mg intravenously after which the heart went from 100 beats per minute to 118 beats per minute. The blood pressure went from 155/71 to 124/59. With Lexiscan, the patient denied chest discomfort. Following the administration of Lexiscan, the patient was administered 45.0 mCi of technetium 99-m sestamibi after which gated stress cardiac images were obtained. Baseline ECG demonstrated sinus rhythm. With Lexiscan, there were no diagnostic ST-segment changes. SPECT images were reconstructed in the short, horizontal, and vertical long axis. Review of these images demonstrated no scintigraphic evidence of inducible myocardial ischemia or prior infarct. Gated images demonstrated a calculated left ventricular ejection fraction of 62% with symmetrical wall motion. CONCLUSIONS: 1. Adequate response to Lexiscan. 2. Clinically negative for chest pain. 3. Electrocardiographically negative for Lexiscan-induced myocardial ischemia. 4. Lexiscan sestamibi images demonstrate no scintigraphic evidence of inducible myocardial ischemia. Normal left ventricular systolic function demonstrated. cc: Malachi Betancourt MD
[2018-11-30] MEDS: COUMADIN PO SCH (20:44)
[2018-11-30] MEDS: TYLENOL PO PRN (20:44)
[2018-11-30] MEDS: LIPITOR PO SCH (20:45)
[2018-11-30] MEDS: RESTORIL PO SCH (20:45)
[2018-11-30] MEDS: NEURONTIN PO SCH (20:45)
[2018-12-01] MEDS: TYLENOL PO PRN (04:37)
[2018-12-01] MEDS: SYNTHROID PO SCH (06:29)
[2018-12-01] MEDS: PRILOSEC PO SCH (06:29)
[2018-12-01 07:28] LABS: INR 1.56
[2018-12-01] MEDS: ZANTAC PO SCH (09:51)
[2018-12-01] MEDS: CARDIZEM CD PO SCH (09:51)
[2018-12-01] MEDS: ALDACTONE PO SCH (09:51)
[2018-12-01] MEDS: NORCO-7.5 PO SCH ×2 (09:51→15:21)
[2018-12-01] MEDS: TAMBOCOR PO SCH (09:51)
[2018-12-01] MEDS: LASIX PO SCH (09:51)
[2018-12-01] MEDS ORDERED: MIRALAX PO SCH (14:30)
[2018-12-01 14:43] LABS: BASO# 0.04 X1000 (0.0-0.2); BASO% 0.3 % (0.0-0.8); EOS# 0.03 X1000 (0.0-0.7); EOS% 0.3 % (0.0-10.0); HEMATOCRIT 39.6 % (37.0-47.0); HEMOGLOBIN 12.4 g/dL (12.0-16.0); IMM GRAN# 0.03 X1000 (0.0-0.04); IMM GRAN% 0.3 % (0.0-0.5); LYMPH# 2.15 X1000 (1.2-3.4); LYMPH% 18.1 % (20.5-51.1); MCH 28.8 PG (27-31); MCHC 31.3 g/dL (33-37); MCV 92.1 FL (81-99); MONO# 1.37 X1000 (0.11-0.59); MONO% 11.5 % (1.7-9.3); MPV 10.9 FL (7.4-10.4); NEUT# 8.28 X1000 (1.4-6.5); NEUT% 69.5 % (42.2-75.2); PLT 310 X1000 (130-400); RDW 14.2 % (11.5-14.5)
[2018-12-01 15:48] LABS: FREE T4 1.43 ng/dL (0.93-1.70); TSH 0.39 uIUmL (0.27-4.20)
[2018-12-01 15:54] VITALS: BP 98/55
[2018-12-01 16:22] LABS: CALCIUM 9.1 mg/dL (8.8-10.2)
[2018-12-01] MEDS ORDERED: COUMADIN PO SCH (21:00)
--- NOTE | 2018-12-01 21:35 | DISCHARGE SUMMARY ---
ADMISSION DATE: 11/28/2018 DISCHARGE DATE: 12/01/2018 CONSULTATIONS: Cardiology, Dr. Betancourt. PROCEDURES: Cardiac stress test, which no inducible ischemia and normal ejection fraction. 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 CT of head and cervical spine: Unchanged right frontal meningioma with no acute process. White count 9.3. INR 1.5, repeat INR still 1.5. Troponin negative x3. TSH and free T4 within normal limits. BNP 106. Complete metabolic panel within normal limits. Urinalysis with trace leukocytes, but no white cells, no red cells, no bacteria. DISCHARGE DIAGNOSES: 1. Chest pain. 2. Likely gastritis. 3. Likely viral illness. 4. Headache. 5. Paroxysmal atrial fibrillation. 6. Hypertension. 7. Hyperlipidemia. 8. Hypothyroidism. 9. Fatigue and malaise. HOSPITAL COURSE: The patient is a 63-year-old female with history of hypertension, hypothyroidism, atrial fibrillation, hyperlipidemia, presented with complaints of chest pain and headache, possibly also some mild dyspnea. Evaluation was really pretty unremarkable. EKG did not have any acute changes. Serial troponins remained negative. Cardiology was consulted and performed stress test which did not show any signs of ischemia. 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 The patient did not have a white count, had no fevers, no hypoxia. Her chest pain seemed to improve with PPI with Protonix. She has complained of some congestion and mild dyspnea, as well as fatigue and malaise. Suspect viral illness and possible GERD/gastritis. Because of patient's complaint of headache for the last month, CT head was performed, which showed an unchanged meningioma versus calcified bony excrescence. No acute process was identified. The patient had no neurologic deficits. Her thyroid function was checked and was in normal limits on her current dose of Synthroid. She is on Coumadin for anticoagulation. Her INR was somewhat subtherapeutic in the 1.5 to 1.6 range, so prior to discharge, her dose was increased to 7.5. The results of that change were pending at the time of discharge. Patient's cardiac workup was unremarkable. Infectious workup was also unremarkable, aside from one low-grade fever at 100.1. The patient was discharged home with PPI, and advised to rest and to hold her home diuretics for the next couple of days until she is feeling better. DISCHARGE VITALS: Temperature 98.2 degrees, pulse 88, respirations 22, blood pressure 117/59, O2 saturation 99% on room air. DISCHARGE DIET: Low salt. DISCHARGE MEDICATIONS: Atorvastatin 40 mg p.o. at bedtime, temazepam 15 mg p.o. at bedtime as needed, biotin as taken previously, cetirizine 10 mg p.o. daily, diltiazem extended release 120 mg p.o. daily, gabapentin 300 mg p.o. at bedtime, [place] as previously prescribed, Synthroid 112 mcg p.o. daily, flecainide 100 mg p.o. b.i.d., Zanaflex 4 mg p.o. at bedtime, Zantac 150 mg p.o. b.i.d., Coumadin 7.5 mg p.o. at bedtime, omeprazole 40 mg p.o. daily. FOLLOWUP AND PLAN: Patient discharging home to follow up with PCP and her regular health worker. Hold diuretics for at least the next couple of days, likely okay to resume after that. Follow up with PCP or coumadin clinic for INR check within the next 2-3 days. TIME: Greater than 30 minutes spent arranging discharge and counseling patient. [facility]ITALChris
== END 2018-12-01 18:08 | disposition home or self-care (01) | DRG 866 ==
LOC: ED 13:03 → 3N 13:03 → OBSVTOIN 23:45 → SUATTDRO 23:45
PROVIDERS: ATTEND Internal Medicine

== ENCOUNTER 2019-06-21 11:50 | Inpatient (IN) ==
--- NOTE | 2019-06-21 12:43 | Diag Imaging Result Doc PS360 ---
CHEST-PORTABLE - 06/21/2019 INDICATION: SOB COMPARISON: 11/28/2018 FINDINGS: The lungs are normally expanded and clear. Heart size and mediastinal contours are normal. No pneumothorax or pleural effusion. IMPRESSION: Negative exam. Electronically signed by Lamonte Rodríguez 06/21/2019 12:41 PM
[2019-06-21 12:49] LABS: BASO# 0.08 X1000 (0.0-0.2); BASO% 0.7 % (0.0-0.8); EOS# 0.68 X1000 (0.0-0.7); EOS% 5.7 % (0.0-10.0); HEMATOCRIT 38.1 % (37.0-47.0); HEMOGLOBIN 11.9 g/dL (12.0-16.0); IMM GRAN# 0.03 X1000 (0.0-0.04); IMM GRAN% 0.3 % (0.0-0.5); LYMPH# 1.85 X1000 (1.2-3.4); LYMPH% 15.5 % (20.5-51.1); MCH 27.9 PG (27-31); MCHC 31.2 g/dL (33-37); MCV 89.4 FL (81-99); MONO% 7.5 % (1.7-9.3); MPV 10.4 FL (7.4-10.4); NEUT# 8.39 X1000 (1.4-6.5); NEUT% 70.3 % (42.2-75.2); PLT 272 X1000 (130-400); RBC 4.26 XMIL (4.2-5.4); RDW 14.7 % (11.5-14.5); WBC 11.93 X1000 (4.8-10.8)
[2019-06-21 12:57] LABS: INR 2.87
[2019-06-21 13:07] LABS: AGAP 14; ALB/GLOB RATIO 1.3; ALBUMIN 4.2 g/dL (3.5-5.0); ALKALINE PHOSPHATASE 89 U/L (32-104); BUN 22 mg/dL (8-22); CALCIUM 9.4 mg/dL (8.8-10.2); CHLORIDE 96 mmol/L (98-107); COSMO 281; CREATININE 0.9 mg/dL (0.5-0.9); ESTIMATED GFR > 60; GLUCOSE 102 mg/dL (70-104); GOT 23 U/L (10-30); GPT 26 U/L (10-36); SODIUM 139 mmol/L (136-145); TCO2 29 mmol/L (25-35); TOTAL BILIRUBIN 0.45 mg/dL (0.20-1.00); TOTAL PROTEIN 7.4 g/dL (6.3-8.3)
[2019-06-21 13:36] LABS: URINE SOURCE CLEAN CATCH
[2019-06-21 13:38] LABS: BILIRUBIN URINE NEGATIVE (NEGATIVE); BLOOD URINE LARGE (NEGATIVE); COLOR YELLOW; GLUCOSE URINE NEGATIVE (NEGATIVE); KETONE URINE NEGATIVE (NEGATIVE); LEUKOCYTES URINE MODERATE (NEGATIVE); NITRITE URINE NEGATIVE (NEGATIVE); PROTEIN URINE 100 mg/dL (NEGATIVE); SP GRAVITY URINE 1.025; TURBIDITY URINE HAZY (CLEAR); UROBILINOGEN URINE 2 mg/dL (NORMAL)
[2019-06-21 13:42] LABS: UR EPITHELIAL CELLS <10 /HPF (<10); URINE BACTERIA NEGATIVE /HPF; URINE RBC <10 /HPF (<10); URINE WBC 20-40 /HPF (<10)
--- NOTE | 2019-06-21 15:14 | Diag Imaging Result Doc PS360 ---
EXAM: CT ABD/PELVIS W/IV CONT ONLY - 06/21/2019 HISTORY: abd pain TECHNIQUE: CT abdomen/pelvis with intravenous contrast COMPARISON: 07/07/2016 FINDINGS: There are small bilateral pleural effusions. There is mild atelectasis or scarring at the paraspinal right lower lobe lung. There has been interval cholecystectomy. There are no substantial abnormalities of the liver, adrenal glands, or pancreas identified. The spleen appears upper normal in size and stable. There is a 1.4 cm enhancing lesion in the spleen which has enlarged from 1.2 cm on the prior exam, and is most conspicuous on the arterial phase images. The bilateral kidneys enhance homogeneously. There is no hydronephrosis. There are no substantially enlarged lymph nodes identified. There are lumbar spine degenerative changes, with apparent spinal stenosis at L4-5, noted. There is no evidence of bowel obstruction. What appears to represent the appendix is unremarkable. There is colonic diverticulosis. There is no indication of diverticulitis. There is no free air, free fluid, or abscess identified. There is no abnormal pelvic mass or fluid collection identified. IMPRESSION: Small bilateral pleural effusions. 1.4 cm splenic lesion is of uncertain significance. Colonic diverticulosis. No indication of diverticulitis. Lumbar spine degenerative changes, with apparent L4-5 spinal stenosis, noted. This exam was performed using automated exposure control, adjustment of mA or kV according to patient size, and/or use of iterative reconstruction technique. Electronically signed by Steven Jimenez 06/21/2019 3:12 PM
[2019-06-21] MEDS ORDERED: NS 1,000 ML IV ONE (15:20)
[2019-06-21] MEDS ORDERED: ROCEPHIN 1 GM in NS 50 ML IV ONE (15:22)
--- NOTE | 2019-06-21 15:45 | EKG Report ---
Test Performed on : 06/21/2019 3:24:50 PM Test Reason : SOB Blood Pressure : / mmHG Vent. Rate : 068 BPM Atrial Rate : 068 BPM P-R Int : 172 ms QRS Dur : 102 ms QT Int : 496 ms P-R-T Axes : 068 023 040 degrees QTc Int : 527 ms Normal sinus rhythm. T wave abnormality, consider anterior ischemia Abnormal ECG When compared with ECG of 28-NOV-2018 13:29, No significant change was found Unconfirmed Result
[2019-06-21] MEDS ORDERED: ZOFRAN IV PRN (15:47)
[2019-06-21] MEDS: MAXIPIME 1 GM in NS 50 ML IV SCH (16:47)
--- NOTE | 2019-06-21 20:29 | HISTORY AND PHYSICAL ---
CHIEF COMPLAINT: Chest pain with fatigue, cough, and fever. HISTORY OF PRESENT ILLNESS: This is a 63-year-old female who presented to the emergency room complaining of 2 days of chest tightness with a dry cough, fevers, abdominal pain, nausea, vomiting, and diarrhea. She has no exacerbating or alleviating factors. She does state that she has been recently treated for a urinary tract infection, with having taken a round of Keflex on 05/20/2019, followed by Macrobid that she took on 06/11/2019 and has just finished in the last day or two. She does state that she developed some diarrhea over the last 3 to 4 days, and her abdominal pain usually follows diarrhea stools. On arrival to the emergency room, she was afebrile. CT of the abdomen and pelvis revealed small bilateral pleural effusions, with a 1.4 cm splenic lesion and colonic diverticulosis. Urinalysis revealed 20 to 40 microscopic white blood cells. Urine culture is pending. PAST MEDICAL HISTORY: 1. Paroxysmal atrial fibrillation. 2. Hypothyroid. 3. Hypertension. 4. Obstructive sleep apnea. PAST SURGICAL HISTORY: 1. Cholecystectomy. 2. Bilateral knee replacement. 3. Bunion removed from the right foot. SOCIAL HISTORY: She is , lives with her . She denies any alcohol, tobacco, or illicit drug use. ALLERGIES: Morphine and Levaquin. Levaquin causes anaphylaxis. HOME MEDICATIONS: A list will be obtained by the nursing staff and once verified, will review and restart as appropriate. REVIEW OF SYSTEMS: Discussed with patient with pertinent positives stated in the HPI. She denied any syncope or dizziness, any palpitations, any black or bloody vomitus or stools, a productive cough, any hematuria, dysuria, frequency, urgency. PHYSICAL EXAMINATION: GENERAL: This is a 63-year-old female who is sitting up on the bedside in no distress. VITAL SIGNS: Blood pressure is 126/71 with a heart rate of 110, respirations are 16, temperature is 97.8 degrees, with room air saturations 99%. EYES: Pupils equal, round, react to light. EOMs are intact. Sclerae anicteric. HEAD: Normocephalic and atraumatic. ENT: Mucous membranes are moist. NECK: Supple with trachea midline. CARDIOVASCULAR: S1 and S2 are appreciated. Regular rate and rhythm. No lower extremity edema. Calves are nontender bilateral. PULMONARY: Breath sounds are clear. No increased work of breathing noted. Chest rises and falls symmetrically with respiration. GASTROINTESTINAL: Abdomen is soft, nontender, and nondistended with bowel sounds in all 4 quadrants. NEUROLOGIC: She is alert and oriented x3. SKIN: Warm and dry. LABS: WBC is 11.9 with hemoglobin 11.9, hematocrit 38.1, and platelets 272,000. INR is 2.87. Sodium 139, potassium 4, BUN 22, creatinine 0.9 with a glucose of 102. Urinalysis reveals moderate leukocytes with 20 to 40 microscopic white blood cells and a large amount of blood. Influenza A and B are negative. Rapid strep is negative. Throat culture, blood cultures, urine cultures are pending. Chest x-ray reveals negative exam. CT of the abdomen and pelvis revealed small bilateral pleural effusions, 1.4 cm splenic lesion, and colonic diverticulosis. ASSESSMENT: This is a 63-year-old female with: 1. Probable urinary tract infection. Urine culture is pending. She has been on 2 antibiotics over the last 6 weeks. We will give Maxipime and further antibiotics will be culture driven. 2. Diarrhea. As she has had recent antibiotics, will check a stool for Clostridium difficile, and until this returns, will give no antidiarrheal medications. 3. Urinary tract infection, with failed outpatient treatment. 4. Leukocytosis, secondary to urinary tract infection. 5. History of paroxysmal atrial fibrillation, on chronic anticoagulation. She will be placed on telemetry. We will continue home medications as appropriate once verified. 6. Chronic anticoagulation. She is on Coumadin. We will continue this. Her INR is 2.87. We will check an INR daily. 7. Hypothyroid. We will continue her home medication and check a TSH. 8. Obstructive sleep apnea. 9. Diabetes mellitus. We will continue home medications as appropriate and place on patterned blood glucose with sliding scale insulin. 10. Further treatments pending hospital course. Dictated by NILESH Novoa for Rekha Iyer MD cc: NILESH Novoa MD
[2019-06-21] MEDS ORDERED: NEURONTIN PO SCH (21:00)
[2019-06-21] MEDS: HUMULIN R SUBQ SCH (22:03)
[2019-06-21] MEDS: ZANAFLEX PO SCH (23:55)
[2019-06-21] MEDS: TAMBOCOR PO SCH (23:55)
[2019-06-21] MEDS: LASIX PO SCH (23:55)
[2019-06-21] MEDS: RESTORIL PO SCH (23:55)
[2019-06-22] MEDS: NEURONTIN PO SCH ×2 (00:31→21:43)
[2019-06-22] MEDS: LIPITOR PO SCH ×2 (00:32→21:44)
[2019-06-22] MEDS: COUMADIN PO SCH ×2 (00:32→21:43)
[2019-06-22] MEDS: SYNTHROID PO SCH (06:03)
[2019-06-22] MEDS: PRILOSEC PO SCH (06:03)
[2019-06-22] MEDS: MAXIPIME 1 GM in NS 50 ML IV SCH ×2 (06:04→18:51)
[2019-06-22] MEDS: HUMULIN R SUBQ SCH ×4 (06:30→21:44)
[2019-06-22] MEDS ORDERED: GLUCOPHAGE PO SCH (09:00)
[2019-06-22] MEDS ORDERED: KLOR-CON PO SCH (09:00)
[2019-06-22] MEDS: LASIX PO SCH ×2 (10:09→21:44)
[2019-06-22] MEDS: TAMBOCOR PO SCH ×2 (10:09→21:43)
[2019-06-22] MEDS: ALDACTONE PO SCH (10:09)
[2019-06-22] MEDS: ZYRTEC PO SCH (10:09)
[2019-06-22] MEDS: CARDIZEM CD PO SCH (10:09)
[2019-06-22 10:10] LABS: AGAP 11; BUN 20 mg/dL (8-22); CALCIUM 9.3 mg/dL (8.8-10.2); CHLORIDE 100 mmol/L (98-107); COSMO 279; CREATININE 0.8 mg/dL (0.5-0.9); ESTIMATED GFR > 60; GLUCOSE 146 mg/dL (70-104); POTASSIUM 3.3 mmol/L (3.5-5.1); SODIUM 137 mmol/L (136-145); TCO2 26 mmol/L (25-35)
[2019-06-22 10:29] LABS: INR 2.98; PROTIME 31.9 Seconds (11.0-16.0)
[2019-06-22 10:30] LABS: BASO# 0.04 X1000 (0.0-0.2); BASO% 0.4 % (0.0-0.8); EOS# 0.71 X1000 (0.0-0.7); EOS% 6.9 % (0.0-10.0); HEMATOCRIT 36.1 % (37.0-47.0); HEMOGLOBIN 11.3 g/dL (12.0-16.0); LYMPH# 1.34 X1000 (1.2-3.4); MCH 28.3 PG (27-31); MCHC 31.3 g/dL (33-37); MCV 90.3 FL (81-99); MONO% 5.8 % (1.7-9.3); MPV 9.9 FL (7.4-10.4); NEUT# 7.49 X1000 (1.4-6.5); NEUT% 72.9 % (42.2-75.2); PLT 271 X1000 (130-400); RDW 14.7 % (11.5-14.5); WBC 10.28 X1000 (4.8-10.8)
[2019-06-22] MEDS ORDERED: KLOR-CON PO ONE (11:30)
--- NOTE | 2019-06-22 17:46 | PROGRESS NOTE ---
DATE: 06/22/2019 SUBJECTIVE: The patient is resting comfortably. She has no complaints. She has been afebrile and eating well. OBJECTIVE: Vital Signs: Temperature 98.2 degrees, blood pressure 115/69, heart rate 73, respirations 16, and O2 saturation is 99% on 2 L nasal cannula. Intake 380, output 250. General: This is a morbidly obese female lying in bed in no acute distress. Heart: S1, S2 normal. Regular rate and rhythm. Lungs: Clear to auscultation bilaterally. Abdomen: Positive bowel sounds. Soft, nontender, nondistended. Extremities: No edema. No cyanosis. Neurologic: The patient is alert and oriented x3. LABORATORIES: White blood cell count 10, hemoglobin 11, hematocrit 36, platelets 271,000. INR 2.9. Sodium 137, potassium 3.3, chloride 100, CO2 of 26, glucose 146. ASSESSMENT AND PLAN: 1. General malaise. The patient appears to have a mild urinary tract infection. So far the urine culture is not growing anything. We will continue on cefepime. We will likely order a repeat urinalysis tomorrow. 2. Hypothyroidism. Continue on Synthroid. 3. Chronic atrial fibrillation. The patient is rate controlled. Continue on flecainide, Cardizem CD, and warfarin. 4. Diabetic neuropathy. Continue on Neurontin. 5. Diabetes mellitus type 2. Continue on sliding scale insulin. 6. Morbid obesity. Aware. 7. Diarrhea. Resolved. DISPOSITION: The patient is currently on Isolation and being ruled out for COVID-19. cc: Rekha Iyer MD
[2019-06-22] MEDS: RESTORIL PO SCH (21:43)
[2019-06-22] MEDS: ZANAFLEX PO SCH (21:44)
[2019-06-22] MEDS: NORCO-7.5 PO PRN (22:25)
[2019-06-23] MEDS: HUMULIN R SUBQ SCH ×2 (06:12→11:45)
[2019-06-23] MEDS: SYNTHROID PO SCH (06:23)
[2019-06-23] MEDS: MAXIPIME 1 GM in NS 50 ML IV SCH (06:23)
[2019-06-23] MEDS: PRILOSEC PO SCH (06:24)
[2019-06-23] MEDS ORDERED: CULTURELLE PO SCH (09:00)
[2019-06-23] MEDS: ALDACTONE PO SCH (09:04)
[2019-06-23] MEDS: CARDIZEM CD PO SCH (09:04)
[2019-06-23] MEDS: ZYRTEC PO SCH (09:04)
[2019-06-23] MEDS: LASIX PO SCH (09:04)
[2019-06-23] MEDS: TAMBOCOR PO SCH (09:04)
[2019-06-23] MEDS: NORCO-7.5 PO PRN (09:11)
[2019-06-23 09:14] LABS: URINE SOURCE CLEAN CATCH
[2019-06-23 09:24] LABS: BILIRUBIN URINE NEGATIVE (NEGATIVE); BLOOD URINE SMALL (NEGATIVE); COLOR YELLOW; GLUCOSE URINE NEGATIVE (NEGATIVE); KETONE URINE NEGATIVE (NEGATIVE); LEUKOCYTES URINE NEGATIVE (NEGATIVE); NITRITE URINE NEGATIVE (NEGATIVE); PROTEIN URINE NEGATIVE (NEGATIVE); SP GRAVITY URINE 1.014; TURBIDITY URINE CLEAR (CLEAR); UROBILINOGEN URINE NORMAL (NORMAL)
[2019-06-23 09:26] LABS: UR EPITHELIAL CELLS <10 /HPF (<10); URINE BACTERIA NEGATIVE /HPF; URINE RBC <10 /HPF (<10); URINE WBC <10 /HPF (<10)
--- NOTE | 2019-06-23 09:53 | PROVIDER DOCUMENTATION ---
This chart was entered by Rosa Shah Scribe, acting as scribe for Alix Reyes CRNP. HPI-Chest Pain - General Stated Complaint: FEVER,COUGH,SOB,N/V/D Time Seen by Provider: 06/21/19 11:59 Source: patient Allergies/Adverse Reactions: Patient Allergies Allergy/AdvReac Type Severity Reaction Status Date / Time morphine Allergy Mild RASH Verified 11/22/18 12:17 levofloxacin [From Levaquin] Allergy ANAPHYLAXIS Verified 11/22/18 12:17 Home Medications: Home Medication List Medication Instructions Recorded Confirmed Last Taken Type Cetirizine HCl 10 mg PO DAILY 06/07/14 06/21/19 11/27/18 History 10 mg Levothyroxine [Synthroid] 112 mcg PO DAILY 06/07/14 06/21/19 11/27/18 History 12 mcg Potassium Chloride [Klor-Con 10] 10 meq PO DAILY 06/07/14 06/21/19 11/28/18 History 10 meq Gabapentin 400 mg PO HS 02/03/16 06/21/19 11/27/18 History 300 mg Tizanidine [Zanaflex] 4 mg PO HS 02/03/16 06/21/19 11/27/18 History 4 mg Flecainide [Tambocor] 100 mg PO BID 07/25/16 06/21/19 11/28/18 History Diltiazem HCl [Diltiazem 24Hr ER 120 mg PO DAILY 10/09/17 06/21/19 11/28/18 History (Xr)] Ranitidine [Zantac] 150 mg PO BID 10/09/17 06/21/19 11/28/18 History ATORVAstatin [Lipitor] 40 mg PO QHS 11/22/18 06/21/19 11/27/18 History Hydrocodone/Acetaminophen [[place] 1 ea PO TID 11/22/18 06/21/19 11/28/18 History 7.5-325 Tablet] Temazepam 15 mg PO QHS 11/22/18 06/21/19 11/27/18 History Omeprazole 40 mg PO DAILY #30 capsule. 12/01/18 06/21/19 Unknown Rx Warfarin [Coumadin] 7.5 mg PO QHS #30 tab 12/01/18 06/21/19 Unknown Rx Furosemide [Lasix] 40 mg PO BID 06/21/19 06/21/19 Unknown History Metformin [Glucophage] 850 mg PO DAILY 06/21/19 06/21/19 Unknown History Spironolactone 25 mg PO DAILY 06/21/19 06/21/19 Unknown History - History of Present Illness-CP Nature of Presenting Problem: pt is a 63 yr old female presenting with 2 day complaint of chest pain(tightness), fatigue, dry cough, fever, abdominal pain, nausea, vomiting and diarrhea. pt reports nothing worsens or improves symptoms. pt denies any other complaints Location: reports: central Chest Pain Radiation: reports: no radiation Quality of Pain: reports: none Severity in ED: moderate Onset/Duration: 2 days ago Timing: still present Context/Activities at Onset: reports: light activity Modifying Factors: improves with: nothing Associated Symptoms: reports: abdominal pain, fever/chills, nausea, vomiting. denies: diaphoresis, shortness of breath Nitro Today/Relief: no nitro taken today Aspirin Treatment Today: no aspirin today Prior Chest Pain/Cardiac Workup: reports: stress test (negative stress test 11/2018) Similar Symptoms Previously?: No Recently Seen Here or By Another Healthcare Provider: No Review of Systems - Adult - REVIEW OF SYSTEMS - ADULT Constitutional: reports: fever, fatique Eyes: reports: no symptoms reported Ears, Nose, Mouth & Throat: reports: no symptoms reported Cardiovascular: reports: chest pain. denies: palpitations, syncope Respiratory: reports: cough. denies: dyspnea on exertion, shortness of breath Gastrointestinal: reports: abdominal pain, diarrhea, nausea, vomiting Genitourinary: reports: no symptoms reported Musculoskeletal: denies: back pain, muscle aches Integumentary: reports: no symptoms reported Neurological: denies: dizziness/vertigo, headache/migraines Psychiatric: reports: no symptoms reported Endocrine: reports: no symptoms reported Hematologic/Lymphatic: reports: no symptoms reported Allergic/Immunologic: reports: no symptoms reported All Other Systems: Reviewed and Negative Past History - Adult - PAST MEDICAL HISTORY-ADULT Review of Records: reports: Old Records Reviewed, Nursing Assessment Review, Medications Reviewed, Social history reviewed & non-contributory. Major Childhood Illnesses: reports: denies history Cardiovascular: reports: A-Fib, HTN, hyperlipidemia Respiratory: reports: denies history Gastrointestinal: reports: GERD Obstetrical/Gynecological: reports: denies history Genitourinary: reports: denies history Musculoskeletal: reports: arthritis Neurological: reports: denies history Psychiatric: reports: denies history Endocrine/Immune: reports: thyroid disorder Other Conditions: reports: denies history - PRIOR SURGERIES/PROCEDURES Surgical/Procedure History: reports: recent surgery (reconstructive foot surgery with bunionectomy), cholecystectomy, joint replacement - IMMUNIZATION STATUS Childhood Immunizations: See Nurse Assessment Flu Vaccine: See Nurse Assessment - FAMILY HISTORY Family History: reviewed, not pertinent - SOCIAL HISTORY Smoking: quit greater than 1 year Substance Use: denies Living Situation: family Physical Exam-General - PHYSICAL EXAM-ADULT Initial Vital Signs Reviewed: Yes - CONSTITUTIONAL General Appearance: appears well, alert, no apparent distress - EYES Eyes: PERRL/EOMI - HEAD, EARS, NOSE, MOUTH & THROAT HENMT: normocephalic/atraumatic, moist mucous membranes, normal ENT inspection - NECK Neck: non-tender, full range of motion, supple, normal inspection - RESPIRATORY Respiratory: lungs clear, normal breath sounds, other (central chest tenderness) - CARDIOVASCULAR Cardiovascular: normal peripheral pulses, regular rate, rhythm, no edema - GASTROINTESTINAL (ABDOMEN) Abdominal Exam: normal bowel sounds, non tender, soft - LYMPHATIC Lymphatic: no adenopathy - MUSCULOSKELETAL Back Exam: normal inspection Extremity: normal range of motion, non-tender, normal gait, normal inspection - SKIN Integumentary: normal color, normal turgor, warm/dry - NEUROLOGIC Neurologic: grossly normal, no motor/sensory deficits - PSYCHIATRIC Psych/Mental Status: normal mood/affect Progress - PLAN OF CARE/RESULTS Progress/Plan/Lab Results: 06/21/19 12:47 Urine Culture - Final Urine,Clean Catch NO PATHOGENIC GROWTH 06/21/19 12:52 Throat Culture - Final Throat NO GROUP A STREP ISOLATED Orders Category Date Time Status Admit - [facility] Routine AdmDCTranf 06/21/19 15:47 Active Currently Rec Anticoagulation [QM] ROUTINE Care 06/21/19 15:47 Active FSBS/Accucheck Result AC + HS Care 06/21/19 15:51 Active Intake and Output-Strict ORDERED Care 06/21/19 15:47 Active Vital Signs Order Q 8-HR ASSESS Care 06/21/19 15:47 Active Z-Document. for Tele Applied ORDERED Care 06/21/19 15:49 Completed Regular Diet Diet 06/21/19 15:[address] ABD/PELVIS W/IV CONT ONLY [CT] Stat Exams 06/21/19 13:17 Completed cxr [CHEST-PORTABLE] [RAD] Stat Exams 06/21/19 12:01 Completed BASIC METABOLIC PANEL [CHEM] Routine Lab 06/22/19 09:20 Completed BLOOD CULTURE [BLDCUL] Stat Lab 06/21/19 16:25 Results CBC WITH DIFF [HEME] Routine Lab 06/22/19 09:20 Completed CBC WITH ELECTRONIC DIFF [HEME] Stat Lab 06/21/19 12:11 Completed COMPREHENSIVE METABOLIC PANEL [CHEM] Stat Lab 06/21/19 12:11 Completed Flu Swab [INFLUENZA SCREEN A/B] Stat Lab 06/21/19 12:11 Completed PROTIME WITH INR [COAG] Stat Lab 06/21/19 12:11 Completed Strep [DIRECT STREP] Stat Lab 06/21/19 12:11 Completed TROPONIN T HIGH SENSITIVITY Stat Lab 06/21/19 12:11 Completed TSH Routine Lab 06/22/19 09:20 Completed UA NIMS W/REFLEX CULT [URINALYSIS] Stat Lab 06/21/19 12:11 Completed URINE CULTURE [RM] Routine Lab 06/21/19 12:47 Completed URINE MANUAL MICROSCOPIC [URINALYSIS] Stat Lab 06/21/19 12:11 Completed 0.9% Sodium Chloride Inj [Ns] 1,000 ml Med 06/21/19 15:20 Discontinued IV 999 mls/hr ATORVAstatin [Lipitor] Med 06/21/19 21:00 Active 40 mg PO QHS CefTRIAXONE [Rocephin] 1 gm Med 06/21/19 15:22 Discontinued 0.9% Sodium Chloride Inj [Ns] 50 ml IV NOW Cetirizine [Zyrtec] Med 06/22/19 09:00 Active 10 mg PO DAILY Diltiazem C.d. [Cardizem Cd] Med 06/22/19 09:00 Active 120 mg PO DAILY Flecainide [Tambocor] Med 06/21/19 21:00 Active 100 mg PO BID Furosemide [Lasix] Med 06/21/19 21:00 Active 40 mg PO BID Gabapentin [Neurontin] Med 06/21/19 21:00 Discontinued 400 mg PO HS Levothyroxine [Synthroid] Med 06/22/19 07:00 Active 112 microgm PO DAILY@0700 Metformin [Glucophage] Med 06/22/19 09:00 Discontinued 850 mg PO DAILY Omeprazole [Prilosec] Med 06/22/19 07:00 Active 40 mg PO DAILY@0700 Ondansetron [Zofran] Med 06/21/19 15:47 Active 4 mg IV Q4H PRN PRN Potassium Chloride E.r. [Klor-Con] Med 06/22/19 09:00 Discontinued 10 meq PO DAILY Spironolactone [Aldactone] Med 06/22/19 09:00 Active 25 mg PO DAILY Temazepam [Restoril] Med 06/21/19 21:00 Active 15 mg PO QHS Tizanidine [Zanaflex] Med 06/21/19 21:00 Active 4 mg PO HS Warfarin [Coumadin] Med 06/21/19 21:00 Active 7.5 mg PO QHS Telemetry [OM.EQ] Routine Oth 06/21/19 15:47 Active EKG [EKG] Stat Ther 06/21/19 12:01 Draft Transfer/Admit Order [TRANSFER] Routine Transfer 06/21/19 15:52 Completed Result Diagrams: 06/22/19 09:20 06/22/19 09:20 - EKG 1 Time of EKG reading by physician:: 15:24 EKG Read and Signed by:: Anthony Johnson EKG Interpretation (*Must complete 3 of following elements*): Abnormal Rate: 68 Rhythm: nsr [place]: normal QRS: other (high voltage) ST Wave: non-specific ST changes - XRAY 1 XRAY Study: Chest Impression: See EMR Report (CHEST-PORTABLE - 06/21/2019 INDICATION: SOB COMPARISON: 11/28/2018 FINDINGS: The lungs are normally expanded and clear. Heart size and mediastinal contours are normal. No pneumothorax or pleural effusion. IMPRESSION: Negative exam. Electronically signed by Lamonte Rodríguez 06/21/2019 12:41 PM 06/21/19 1241 Interpreting Physician: Lamonte Rodríguez MD Dictated Date/Time: 06/21/19 1240 cc: Alix Reyes; None,PCP) - CT/MRI 1 CT Study: Abdomen, Pelvis Impression: See EMR Report (EXAM: CT ABD/PELVIS W/IV CONT ONLY - 06/21/2019 HISTORY: abd pain TECHNIQUE: CT abdomen/pelvis with intravenous contrast COMPARISON: 07/07/2016 FINDINGS: There are small bilateral pleural effusions. There is mild atelectasis or scarring at the paraspinal right lower lobe lung. There has been interval cholecystectomy. There are no substantial abnormalities of the liver, adrenal glands, or pancreas identified. The spleen appears upper normal in size and stable. There is a 1.4 cm enhancing lesion in the spleen which has enlarged from 1.2 cm on the prior exam, and is most conspicuous on the arterial phase images. The bilateral kidneys enhance homogeneously. There is no hydronephrosis. There are no substantially enlarged lymph nodes identified. There are lumbar spine degenerative changes, with apparent spinal stenosis at L4-5, noted. There is no evidence of bowel obstruction. What appears to represent the appendix is unremarkable. There is colonic diverticulosis. There is no indication of diverticulitis. There is no free air, free fluid, or abscess identified. There is no abnormal pelvic mass or fluid collection identified. IMPRESSION: Small bilateral pleural effusions. 1.4 cm splenic lesion is of uncertain significance. Colonic diverticulosis. No indication of diverticulitis. Lumbar spine degenerative changes, with apparent L4-5 spinal stenosis, noted. This exam was performed using automated exposure control, adjustment of mA or kV according to patient size, and/or use of iterative reconstruction technique. Electronically signed by Steven Jimenez 06/21/2019 3:12 PM 06/21/19 6427 Interpreting Physician: Steven Jimenez MD Dictated Date/Time: 06/21/19 3102 cc: Alix Reyes; None,PCP) - CONSULTS/PCP/HOSPITALIST Notification #1 *Consult/PCP/Hospitalist*: Ellen Time Discussed: 18:00 Consult Disposition: Admit Departure - Departure Date of Disposition Decision: 06/21/19 Time of Disposition Decision: 18:00 DIAGNOSIS: UTI (urinary tract infection), Diarrhea, Dehydration Disposition: ADMITTED INPATIENT 09 Certified Medical Emergency: Emergent Condition: Stable - Critical Care Note This patient required my direct & personal management of CC.: No Attestation - Physician/ GEORGE Attestation Patient care was provided by Advanced Practice Provider:: Yes Advanced Practice Provider:: Alix Reyes Advanced Practice Provider documentation review:: The Mid-level provider documentation, treatment plan and medical decision making was reviewed by the physician who agrees with all treatment and medical decision making by the MLP. The physician spent face to face time with patient:: No Advanced Practice Provider documentation review:: Supervising physician onsite and consulted in the evaluation and care of this patient. The physician did not have a face to face encounter with the patient. This chart was documented by the indicated scribe, (Rosa Shah, Anum) and accurately reflects the services I performed and decisions made by Eric mcdaniel Brittany M., CRNP, as attested by the provider's signature.
[2019-06-23 10:43] LABS: BASO# 0.05 X1000 (0.0-0.2); BASO% 0.6 % (0.0-0.8); EOS# 0.83 X1000 (0.0-0.7); EOS% 9.3 % (0.0-10.0); HEMATOCRIT 33.9 % (37.0-47.0); HEMOGLOBIN 10.5 g/dL (12.0-16.0); IMM GRAN# 0.02 X1000 (0.0-0.04); IMM GRAN% 0.2 % (0.0-0.5); LYMPH# 1.52 X1000 (1.2-3.4); MCV 90.4 FL (81-99); MONO# 0.83 X1000 (0.11-0.59); MONO% 9.3 % (1.7-9.3); MPV 9.8 FL (7.4-10.4); NEUT# 5.71 X1000 (1.4-6.5); NEUT% 63.6 % (42.2-75.2); PLT 271 X1000 (130-400); RBC 3.75 XMIL (4.2-5.4); RDW 14.8 % (11.5-14.5); WBC 8.96 X1000 (4.8-10.8)
[2019-06-23 10:50] LABS: INR 2.79; PROTIME 30.2 Seconds (11.0-16.0)
[2019-06-23] MEDS ORDERED: KLOR-CON PO ONE (11:11)
[2019-06-23 11:22] LABS: AGAP 11; BUN 19 mg/dL (8-22); CALCIUM 8.9 mg/dL (8.8-10.2); CHLORIDE 99 mmol/L (98-107); COSMO 278; CREATININE 0.9 mg/dL (0.5-0.9); ESTIMATED GFR > 60; GLUCOSE 108 mg/dL (70-104); POTASSIUM 3.7 mmol/L (3.5-5.1); SODIUM 138 mmol/L (136-145); TCO2 28 mmol/L (25-35)
[2019-06-23 11:40] VITALS: BP 103/53
--- NOTE | 2019-06-26 07:24 | DISCHARGE SUMMARY ---
ADMISSION DATE: 06/21/2019 DISCHARGE DATE: 06/23/2019 FINAL DISCHARGE DIAGNOSES: 1. Urinary tract infection. 2. General malaise. 3. Hypothyroidism. 4. Chronic atrial fibrillation. 5. Diabetic neuropathy. 6. Diabetes mellitus type 2. 7. Diarrhea. 8. Morbid obesity. HOSPITAL COURSE: Ms. Bright is a 63-year-old female with a history of multiple medical problems, who presented to the hospital with diarrhea and general malaise. There was concern about a possible urinary tract infection as well. Given the patient's recent exposure, she was also tested for COVID-19 and placed on isolation. The patient was treated with IV antibiotics as well as IV fluids. Ultimately, the COVID-19 test came back negative. The patient had a mild UTI on admission, and after IV antibiotic therapy, a repeat urinalysis was performed, which was noted to be negative. The patient also stated that she felt much better and was no longer having diarrhea. The patient was ultimately cleared for discharge home on 06/23/2019. DISCHARGE MEDICATIONS: 1. Synthroid 112 mcg oral daily. 2. Klor-Con 10 mEq oral daily. 3. Cetirizine 10 mg oral daily. 4. Zanaflex 4 mg oral at bedtime. 5. Gabapentin 400 mg oral at bedtime. 6. Flecainide 100 mg oral twice a day. 7. Diltiazem 120 mg oral daily. 8. Zantac 150 mg oral twice a day. 9. Lipitor 40 mg oral at bedtime. 10. [place] 7.5/325 one tablet oral 3 times a day. 11. Temazepam 15 mg oral at bedtime. 12. Omeprazole 40 mg p.o. daily. 13. Warfarin 7.5 mg oral at bedtime. 14. Lasix 40 mg p.o. twice a day. 15. Metformin 850 mg oral daily. 16. Aldactone 25 mg oral daily. DISCHARGE DIET: Low-sodium, 1800-ADA diet. ACTIVITY: As tolerated. FOLLOWUP INSTRUCTIONS: The patient has been advised to follow up with her primary care physician in 1 to 2 weeks. cc: Rekha Iyer MD
== END 2019-06-23 12:47 | disposition home or self-care (01) | DRG 690 ==
LOC: ED 11:50 → 3N 15:58 → 4N 06-22 01:25
PROVIDERS: ATTEND Internal Medicine